=== PATIENT | female | born 1970 | race Caucasian/White ===

== ENCOUNTER 2020-08-04 10:22 | Outpatient (REF) | payer MEDICAID, SELFPAY ==
--- NOTE | ~2020-08-04 | XR_ITS ---
EXAMINATION: XR AP PELVIS AND BILATERAL HIPS XR HAND, BILATERAL XR THORACIC SPINE CLINICAL INFORMATION: Pelvic pain. Bilateral hip pain. Bilateral hand pain. Midback pain. COMPARISON: None TECHNIQUE: 3 views thoracic spine. AP pelvis and bilateral hips 5 views. 3 views each hand. FINDINGS: DORSAL SPINE: There is normal thoracic kyphosis. The vertebral heights, alignment and disc heights are normal. There is mild ventral spondylosis mid thoracic spine. There is no visible acute fracture, dislocation or subluxation seen. The paravertebral soft tissues are normal. No lytic or sclerotic process seen. AP PELVIS AND BILATERAL HIPS: There is normal symmetry of bilateral SI joints and bilateral hip joints. There is no visible acute fracture, dislocation or subluxation seen. No lytic process. RIGHT HIP: The right hip joint space is maintained. No bony erosive changes, loose bodies or joint effusion seen. The soft tissues are normal. There are several phleboliths in the pelvis. LEFT HIP: The left hip joint space is maintained normal. No fracture, dislocation or bony erosive changes. The soft tissues are normal. RIGHT HAND: There is no acute fracture, dislocation or subluxation. There is mild loss of PIP and DIP joint space with minimal periarticular spurring DIP joint 5th digit. No bony erosive changes seen. The soft tissues are normal. LEFT HAND: There is no visible acute fracture, dislocation or subluxation seen. Mild loss of PIP and DIP joint space without periarticular spurring. There is benign dense bone formation distal phalanx 2nd digit. XR/XR hips JAVIER min 3V IMPRESSION: Mild early degenerative changes suspected in PIP and DIP joints of both hands. No acute fracture or dislocation seen. Unremarkable bilateral hip and AP pelvis exam. Mild spondylosis mid dorsal spine otherwise unremarkable.
--- NOTE | ~2020-08-04 | XR_ITS ---
EXAMINATION: XR AP PELVIS AND BILATERAL HIPS XR HAND, BILATERAL XR THORACIC SPINE CLINICAL INFORMATION: Pelvic pain. Bilateral hip pain. Bilateral hand pain. Midback pain. COMPARISON: None TECHNIQUE: 3 views thoracic spine. AP pelvis and bilateral hips 5 views. 3 views each hand. FINDINGS: DORSAL SPINE: There is normal thoracic kyphosis. The vertebral heights, alignment and disc heights are normal. There is mild ventral spondylosis mid thoracic spine. There is no visible acute fracture, dislocation or subluxation seen. The paravertebral soft tissues are normal. No lytic or sclerotic process seen. AP PELVIS AND BILATERAL HIPS: There is normal symmetry of bilateral SI joints and bilateral hip joints. There is no visible acute fracture, dislocation or subluxation seen. No lytic process. RIGHT HIP: The right hip joint space is maintained. No bony erosive changes, loose bodies or joint effusion seen. The soft tissues are normal. There are several phleboliths in the pelvis. LEFT HIP: The left hip joint space is maintained normal. No fracture, dislocation or bony erosive changes. The soft tissues are normal. RIGHT HAND: There is no acute fracture, dislocation or subluxation. There is mild loss of PIP and DIP joint space with minimal periarticular spurring DIP joint 5th digit. No bony erosive changes seen. The soft tissues are normal. LEFT HAND: There is no visible acute fracture, dislocation or subluxation seen. Mild loss of PIP and DIP joint space without periarticular spurring. There is benign dense bone formation distal phalanx 2nd digit. XR/XR thoracic spine 3V IMPRESSION: Mild early degenerative changes suspected in PIP and DIP joints of both hands. No acute fracture or dislocation seen. Unremarkable bilateral hip and AP pelvis exam. Mild spondylosis mid dorsal spine otherwise unremarkable.
== END 2020-08-04 10:23 | disposition home or self-care (01) ==
LOC: HO.XRAY 10:22
PROVIDERS: PCP Internal Medicine Geriatric Medicine; Visit Provider Internal Medicine Geriatric Medicine
DX: M25.551 Pain in right hip (principal); M25.552 Pain in left hip; M54.6 Pain in thoracic spine; M79.641 Pain in right hand; M79.642 Pain in left hand
CPT/HCPCS: 72072; 73130; 73522

== ENCOUNTER 2021-05-18 07:44 | Emergency (ER) | payer MEDICAID, SELFPAY ==
[2021-05-18 07:47] VITALS: BP 111/68; PULSE 70; RESP 16; TEMP 36.6; O2SAT 100; BMI 30.8
--- NOTE | 2021-05-18 08:23 | ED.BACK ---
HPI - Back Pain/Injury General Chief Complaint: Back Pain/Injury Stated Complaint: severe back pain Time Seen by Provider: 05/18/21 08:23 Source: patient Mode of arrival: ambulatory Limitations: no limitations History of Present Illness MD elicited complaint: back pain Pertinent past history: prior back pain Onset (ago): day(s) (Monday) Timing: constant Severity: severe Similar Symptoms Previously: Yes Quality: spasming and throbbing Location: lumbar spine and thoracic spine Radiation: none Exacerbating factors: movement, walking, coughing/sneezing and lifting Relieving factors: immobilization Context: unknown Associated symptoms: denies other symptoms Treatments prior to arrival: other medications and other medications Work related injury: No Related Data Previous Rx's Medication Instructions Recorded diazepam 5 mg tablet (Valium) 5 mg PO TID PRN #10 tab 05/18/21 lidocaine 4 % topical patch 1 patch TOPICAL DAILY PRN #10 ea 05/18/21 oxycodone 5 mg tablet 5 mg PO TID PRN 3 Days #10 tab 05/18/21 Allergies Allergy/AdvReac Type Severity Reaction Status Date / Time No Known Allergies Allergy Unverified 11/07/19 17:42 [No Known Allergies*] Review of Systems Review of Systems: Constitutional : No Weight loss, No Fever, No Chills, ENT/Mouth : No Hearing loss, No Ear Pain, No Nasal Congestion, No Sinus Pain, No Hoarseness, No sore throat, No Rhinorrhea, No Swallowing Difficulty Cardiovascular : No Chest Pain, No SOB Respiratory : No Cough, No Dyspnea Gastrointestinal : No Nausea, No Vomiting, No Diarrhea, No abdominal Pain, No Hematochezia, No Melena Genitourinary : No Dysuria, No Urinary Frequency, No Hematuria, No Urinary Incontinence, Musculoskeletal : positive back pain Skin : No Skin Lesions, No rash Neuro : No Weakness, No Numbness, No Paresthesias, no loss of bowel or bladder incontinence, no saddle anesthesia PMFSH Past Medical History Attestation statement: The following information was validated with the patient. Medical History (Updated 05/18/21 @ 08:46 by Urszula Carney DO) Back pain GERD (gastroesophageal reflux disease) Gout Social History Social History (Updated 05/18/21 @ 08:41 by Urszula Carney DO) Patient Tobacco Use Status: Never used Tobacco Use of substances other than those prescribed or required for medical reasons: No Advance Directives: No Advance Directives Information Provided: No Patient : No Physical Exam Vital Signs: Vital Signs: Last Vital Signs Temp 98 F 05/18/21 07:47 Pulse 70 05/18/21 07:47 Resp 16 05/18/21 07:47 BP 111/68 05/18/21 07:47 Pulse Ox 100 05/18/21 07:47 BMI result Body Mass Index 30.8 Appearance: Alert. Oriented X3. No acute distress. Eyes: Pupils equal, round and reactive to light. ENT: Pharynx normal. Neck: Normal inspection. Neck supple. CVS: Normal heart rate and rhythm. Pulses normal. Respiratory: No respiratory distress. Breath sounds normal. Abdomen: Soft and nontender. Back: moderate lumbar paraspinal ttp Skin: Skin warm and dry. Normal skin color. Normal skin turgor. Extremities: No lower extremity edema. No calf ttp Neuro: Oriented X 3. No motor deficit. No sensory deficit. L5 5/5 bilaterally, SILT inner thighs, 2+ DTRs in patella and achiles area Course Course Course Narrative: patient feels much better, stable for DC MDM - Back Pain/Injury MDM Narrative Medical decision making narrative: 51 yo female with hx of GERD, prior back pain reports Monday AM she woke up with lower back pain that shoots up her back , denies trauma. She is not IVDA, no AC therapy, has no b/b incontinence, no saddle anesthesia, she is distal NV intact. At this time suspect spasm vs disc disease - PO medications dispo per improvement Discharge Plan Discharge Clinical Impression: Back muscle spasm Patient Disposition: Home, Self-Care Instructions: Muscle Spasm (ED), Back Pain (ED) Additional Instructions: return to ED for any worsening symptoms or concerns Prescriptions: New lidocaine 4 % adhesive patch,medicated 1 patch topical DAILY PRN (Reason: pain) Qty: 10 0RF Rx Instructions: may leave on for up to 12 hrs diazepam [Valium] 5 mg tablet 5 mg PO TID PRN (Reason: muscle spasm) Qty: 10 0RF oxycodone 5 mg tablet 5 mg PO TID PRN (Reason: pain) 3 Days Qty: 10 0RF Referrals: Name,MD Aftab [Primary Care Provider] - 3 days (if not better) Stand Alone Forms: Work/School Release
[2021-05-18] MEDS: oxyCODONE HCl Immed Release 5 MG TABLET PO (08:56)
[2021-05-18] MEDS: Ondansetron ODT 4 MG TAB.RAPDIS TRANSLINGU (08:56)
[2021-05-18] MEDS: diazePAM 5 MG TABLET PO (08:56)
[2021-05-18 09:55] VITALS: RESP 17
== END 2021-05-18 10:01 | disposition home or self-care (01) ==
PROVIDERS: Emergency Provider Emergency Medicine; PCP Internal Medicine Geriatric Medicine
DX: M54.50 Low back pain, unspecified (principal); M62.830 Muscle spasm of back; Z79.899 Other long term (current) drug therapy
CPT/HCPCS: 99283; 99284

== ENCOUNTER 2021-05-20 12:36 | Outpatient (REF) | payer MEDICAID, SELFPAY ==
--- NOTE | ~2021-05-20 | XR_ITS ---
EXAMINATION: XR THORACIC SPINE XR LUMBAR SPINE CLINICAL INFORMATION: Pain COMPARISON: 08/04/2020 TECHNIQUE: 2 views of the thoracic spine. 3 views of the lumbar spine. FINDINGS: Thoracic spine: No fracture or subluxation. Vertebral body height and alignment maintained. Mild disc space narrowing at the mid to lower thoracic spine. Small endplate osteophytes. The paravertebral soft tissues are unremarkable. The lungs are clear. Lumbar spine: No acute fracture or subluxation. Vertebral body height and alignment maintained. Mild disc space narrowing of L5-S1. Small endplate osteophytes with endplate sclerosis. Mild facet arthropathy at this level as well. The bowel gas pattern is nonobstructive. Prominent stool of the right hemicolon. Right lower quadrant surgical clips are present. XR/XR lumbar spine 2-3V IMPRESSION: Mild degenerative change of the thoracic and lumbar spine.
--- NOTE | ~2021-05-20 | XR_ITS ---
EXAMINATION: XR THORACIC SPINE XR LUMBAR SPINE CLINICAL INFORMATION: Pain COMPARISON: 08/04/2020 TECHNIQUE: 2 views of the thoracic spine. 3 views of the lumbar spine. FINDINGS: Thoracic spine: No fracture or subluxation. Vertebral body height and alignment maintained. Mild disc space narrowing at the mid to lower thoracic spine. Small endplate osteophytes. The paravertebral soft tissues are unremarkable. The lungs are clear. Lumbar spine: No acute fracture or subluxation. Vertebral body height and alignment maintained. Mild disc space narrowing of L5-S1. Small endplate osteophytes with endplate sclerosis. Mild facet arthropathy at this level as well. The bowel gas pattern is nonobstructive. Prominent stool of the right hemicolon. Right lower quadrant surgical clips are present. XR/XR thoracic spine 2V IMPRESSION: Mild degenerative change of the thoracic and lumbar spine.
== END 2021-05-20 12:37 | disposition home or self-care (01) ==
LOC: HO.XRAY 12:36
PROVIDERS: Absent Provider Internal Medicine Geriatric Medicine; PCP Internal Medicine Geriatric Medicine; Visit Provider Internal Medicine
DX: M54.51 Vertebrogenic low back pain (principal); M54.6 Pain in thoracic spine
CPT/HCPCS: 72070; 72100

== ENCOUNTER 2021-06-21 08:20 | Emergency (ER) | payer MEDICAID, SELFPAY ==
--- NOTE | ~2021-06-21 | XR_ITS ---
EXAMINATION: XR CHEST CLINICAL INFORMATION: Chest pain. COMPARISON: None TECHNIQUE: 2 views of the chest were obtained. FINDINGS: No significant abnormality is noted involving the heart, lungs, mediastinum, bony thorax or soft tissues. XR/XR chest 2V IMPRESSION: Unremarkable examination.
[2021-06-21 08:46] VITALS: BP 122/78; PULSE 70; RESP 16; TEMP 36.1; O2SAT 98; BMI 31.8
--- NOTE | 2021-06-21 09:59 | ECG_ITS ---
Test Reason : CHEST PAIN Blood Pressure : / mmHG Vent. Rate : 064 BPM Atrial Rate : 064 BPM P-R Int : 162 ms QRS Dur : 074 ms QT Int : 400 ms P-R-T Axes : 058 057 053 degrees QTc Int : 412 ms Normal sinus rhythm with sinus arrhythmia Normal ECG When compared with ECG of 30-JAN-2015 11:19, No significant change was found Referred By: Aleshia Olivia Electronically Signed By:RUT MIX MD
--- NOTE | 2021-06-21 10:02 | ED_ITS ---
HPI - Back Pain/Injury General Chief Complaint: Back Pain/Injury Stated Complaint: can't feel arm, back and rib pain Time Seen by Provider: 06/21/21 09:44 Source: patient Mode of arrival: ambulatory History of Present Illness HPI Narrative: 51-year-old female with a past medical history back pain, GERD, gout, fibromyalgia, presenting to the ED complaining of sudden onset right scapular pain radiating down RUE around 07:30AM. Admits to associated chest discomfort, SOB, and numbness/tingling to right arm. Reports pain causing decreased range of motion to RUE. Admits to similar pain in the past. Denies fever, chills, headache, abdominal pain, nausea/vomiting MD elicited complaint: back pain Onset (ago): day(s) Timing: constant Severity: severe Related Data Previous Rx's Medication Instructions Recorded diazepam 5 mg tablet (Valium) 5 mg PO TID PRN #10 tab 05/18/21 lidocaine 4 % topical patch 1 patch TOPICAL DAILY PRN #10 ea 05/18/21 oxycodone 5 mg tablet 5 mg PO TID PRN 3 Days #10 tab 05/18/21 acetaminophen 500 mg capsule 500 mg PO Q6H PRN #14 cap 06/21/21 (Tylophen) cyclobenzaprine 5 mg tablet 5 mg PO Q8H PRN 5 Days #14 tab 06/21/21 lidocaine 5 % topical patch 1 patch TOPICAL DAILY PRN #30 ea 06/21/21 (Lidoderm) MDD remove after 12 hours naproxen 500 mg tablet 500 mg PO BID PRN 10 Days #20 tab 06/21/21 Allergies Allergy/AdvReac Type Severity Reaction Status Date / Time No Known Allergies Allergy Unverified 11/07/19 17:42 [No Known Allergies*] Review of Systems Review of Systems: Constitutional: No Fever, No Chills, No Fatigue, No Malaise ENT/Mouth: No Ear Pain, No Nasal Congestion, No sore throat, No Rhinorrhea, No Swallowing Difficulty Eyes: No Eye Pain, No Swelling, No Redness, No Discharge Cardiovascular: +Chest Pain, + SOB, No Edema, No Palpitations Respiratory: No Cough, No Sputum, No Dyspnea Gastrointestinal: No Nausea, No Vomiting, No Diarrhea, No Constipation, No Abdominal pain Genitourinary:No Dysuria, No Urinary Frequency, No Hematuria, No Urinary Incontinence, No Flank Pain, No Urinary Flow Changes Musculoskeletal: +back pain, No Myalgias, No Joint Swelling Skin: No Skin Lesions, No rash Neuro: No Weakness, + Numbness, + Paresthesias, No Loss of Consciousness, No Dizziness, No Headache Yes all other systems are reviewed and are negative [facility] Past Medical History Attestation statement: The following information was validated with the patient. Medical History Back pain GERD (gastroesophageal reflux disease) Gout Social History Social History Patient Tobacco Use Status: Never used Tobacco Advance Directives: No Advance Directives Information Provided: No Physical Exam Vital Signs: Vital Signs: Last Vital Signs Temp 96.9 F 06/21/21 08:46 Pulse 70 06/21/21 08:46 Resp 16 06/21/21 08:46 BP 122/78 06/21/21 08:46 Pulse Ox 98 06/21/21 08:46 BMI result Body Mass Index 31.8 Const: General: cooperative, healthy appearing, no acute distress, alert and awake Orientation/consciousness: patient oriented x3 Limitations: no limitations HEENT: Head: Yes normal to inspection and Yes atraumatic Ears: hearing grossly normal bilaterally General nose exam: Normal external nose present Face and sinus: Yes normal facial exam Eyes: General: appearance normal, both eyes and all related structures EOM: EOMs intact bilaterally Neck: Other: No midline cervical spinous tenderness/step-off or deformity Neck: Yes normal visual inspection and Yes no meningeal signs Resp: Effort & Inspection: normal respiratory effort and no respiratory distress Cardio: Rate: regular rate Heart sounds: S1 normal heart sound present and S2 normal heart sound present Peripheral pulses: radial pulses present GI: Inspection: Yes normal to inspection Palpation (GI): Soft to palpation, nontender, no guarding and not rigid : General: Yes no CVA tenderness Back/Spine/Pelvis: Other: No midline thoracic/lumbar spine tenderness. Right-sided thoracic paraspinal tenderness to palpation and right subscapular tenderness, reproducing subjective complaint. No erythema/ecchymosis. No crepitus Back: no CVA tenderness Skin: Rashes: no rashes Wounds: no wounds Neuro: General: patient oriented x3, tone normal and no meningeal signs Gait exam (Neuro): Normal gait present Extrem: Other: +R shoulder nontender, decreased ROM secondary to pain. NV intact distally General: Yes normal to inspection, Yes no pedal edema and Yes no calf tenderness Course Course Course Narrative: -reports symptomatic improvement after medications given in the ED XR chest 2V IMPRESSION: Unremarkable examination --1513--labs unremarkable. Troponin x2 negative MDM - Back Pain/Injury MDM Narrative Medical decision making narrative: 51-year-old female with a past medical history back pain, GERD, gout, fibromyalgia, presenting to the ED complaining of sudden onset right scapular pain radiating down RUE around 07:30AM. Admits to associated chest discomfort, SOB, and numbness/tingling to right arm. On exam vital signs stable, NAD/nontoxic-appearing, physical exam as above, no red flag symptoms, no midline spinous tenderness throughout. Decreased range of motion to right arm secondary to pain. Concern for MSK pain/strain/muscle spasming vs ACS. Symptoms atypical for PE/pneumonia. Low concern for cervical fracture/cord compression or cervical dissection Plan: EKG, labs, CXR, pain management, re-evaluated Medical Records Attestation: I reviewed the patient's medical records. Lab Data Attestation: I reviewed the patient's lab results. Result diagrams: 06/21/21 11:05 06/21/21 11:05 Labs: Lab Results 06/21/21 06/21/21 06/21/21 Range/Units 11:05 11:05 11:05 WBC 4.9 (4.8-10.8) X10*3/uL RBC 4.85 (4.20-5.50) X10*6/uL Hgb 13.0 (12.0-16.0) g/dl Hct 40.7 (37.0-47.0) % MCV 83.9 (80.0-98.0) fL MCH 26.8 L (27.0-33.0) pg MCHC 31.9 (31.0-35.0) g/dl RDW 14.3 (11.0-16.0) % Plt Count 195 (160-400) X10*3/uL MPV 11.1 (9.4-12.3) fL Immature Gran % (Auto) 0.2 (0.0-0.4) % Neut % (Auto) 59.5 (45-73) % Lymph % (Auto) 31.8 (20-40) % Mathews % (Auto) 6.9 (2-11) % Eos % (Auto) 0.8 (0-4) % Baso % (Auto) 0.8 (0-2) % Lymph # (Auto) 1.6 (1.2-4.9) X10*3/uL Mathews # (Auto) 0.3 (0.1-1.2) X10*3/uL Eos # (Auto) 0.0 (0.0-0.4) X10*3/uL Baso # (Auto) 0.0 (0.0-0.2) X10*3/uL Abs Immat Gran (auto) 0.01 (0.00-0.03) X10*3/uL Absolute Neuts (auto) 2.9 (2.0-8.3) x10*3/uL Absolute Nucleated RBC 0.000 (0.0-0.012) X10*3/uL Nucleated RBC % (auto) 0.0 (0.0-0.2) /100WBC Sodium 140 (135-145) mmol/L Potassium 4.7 (3.3-5.1) mmol/L Chloride 104 (96-108) mmol/L Carbon Dioxide 30 H (22-29) mmol/L Anion Gap 11 L (12-20) BUN 12 (9-16) mg/dL Creatinine 0.80 (0.5-1.4) mg/dL Estim Creat Clear Calc 83.2 Estimated GFR > 60 Random Glucose 109 (60-115) mg/dL Calcium 10.1 (8.4-10.2) mg/dL Troponin I High Sens < 3.5 (<3.5-17.0) ng/L B-Natriuretic Peptide (<100) pg/mL 06/21/21 06/21/21 Range/Units 11:05 14:16 WBC (4.8-10.8) X10*3/uL RBC (4.20-5.50) X10*6/uL Hgb (12.0-16.0) g/dl Hct (37.0-47.0) % MCV (80.0-98.0) fL MCH (27.0-33.0) pg MCHC (31.0-35.0) g/dl RDW (11.0-16.0) % Plt Count (160-400) X10*3/uL MPV (9.4-12.3) fL Immature Gran % (Auto) (0.0-0.4) % Neut % (Auto) (45-73) % Lymph % (Auto) (20-40) % Mathews % (Auto) (2-11) % Eos % (Auto) (0-4) % Baso % (Auto) (0-2) % Lymph # (Auto) (1.2-4.9) X10*3/uL Mathews # (Auto) (0.1-1.2) X10*3/uL Eos # (Auto) (0.0-0.4) X10*3/uL Baso # (Auto) (0.0-0.2) X10*3/uL Abs Immat Gran (auto) (0.00-0.03) X10*3/uL Absolute Neuts (auto) (2.0-8.3) x10*3/uL Absolute Nucleated RBC (0.0-0.012) X10*3/uL Nucleated RBC % (auto) (0.0-0.2) /100WBC Sodium (135-145) mmol/L Potassium (3.3-5.1) mmol/L Chloride (96-108) mmol/L Carbon Dioxide (22-29) mmol/L Anion Gap (12-20) BUN (9-16) mg/dL Creatinine (0.5-1.4) mg/dL Estim Creat Clear Calc Estimated GFR Random Glucose (60-115) mg/dL Calcium (8.4-10.2) mg/dL Troponin I High Sens < 3.5 (<3.5-17.0) ng/L B-Natriuretic Peptide 25 (<100) pg/mL Discharge Plan Discharge Clinical Impression: Thoracic back pain Patient Disposition: Home, Self-Care Instructions: Back Pain (ED) Additional Instructions: Your blood work and chest x-ray were reassuring today in the emergency department Please follow-up with her doctor/pain management Your pain is likely musculoskeletal Flexeril is a muscle relaxer, take at night as it makes you drowsy, do not drive, drink alcohol, or operate machinery while taking it Naproxen as an anti-inflammatory / pain medication, take with food Lidoderm patches are numbing patches, apply to painful area In addition take Tylenol at home If symptoms persist or worsen, pain becomes unbearable, you developed urinary retention or incontinence, or weakness return to the ED Alexander an?lisis de janice y radiograf?a de t?rax fueron tranquilizadores hoy en el departamento de emergencias. Por favor, robert un seguimiento con alexander m?dico/control del dolor. Es probable que alexander dolor sea musculoesquel?tyrone Flexeril es un relajante muscular, t?ignacio por la noche ya que te adormece, no conduzcas, bebas alcohol ni operes maquinaria mientras lo edil. Naproxeno laly medicamento antiinflamatorio/analg?sico, t?patricia con alimentos Los parches de Lidoderm son parches anest?sicos, se aplican en el ?rafat dolorida Adem?s paul Tylenol en casa Si los s?ntomas persisten o empeoran, el dolor se vuelve insoportable, desarroll? retenci?n urinaria o incontinencia, o debilidad, regrese al servicio de urgencias. Prescriptions: New lidocaine [Lidoderm] 5 % adhesive patch,medicated 1 patch topical DAILY MDD remove after 12 hours PRN (Reason: pain) Qty: 30 0RF Rx Instructions: leave on most painful area for up to 12 hrs naproxen 500 mg tablet 500 mg PO BID PRN (Reason: pain) 10 Days Qty: 20 0RF cyclobenzaprine 5 mg tablet 5 mg PO Q8H PRN (Reason: pain (scale score 7-10)) 5 Days Qty: 14 0RF acetaminophen [Tylophen] 500 mg capsule 500 mg PO Q6H PRN (Reason: fever or pain) Qty: 14 0RF No Action lidocaine 4 % adhesive patch,medicated 1 patch topical DAILY PRN (Reason: pain) Qty: 10 0RF Rx Instructions: may leave on for up to 12 hrs diazepam [Valium] 5 mg tablet 5 mg PO TID PRN (Reason: muscle spasm) Qty: 10 0RF oxycodone 5 mg tablet 5 mg PO TID PRN (Reason: pain) 3 Days Qty: 10 0RF Referrals: Name,MD Aftab [Primary Care Provider] - 5 days Print Language: Tuvaluan
[2021-06-21] MEDS: Cyclobenzaprine HCl 10 MG TABLET PO (10:51)
[2021-06-21] MEDS: Ketorolac Tromethamine 30 MG/ML VIAL IM (10:52)
[2021-06-21] MEDS: Lidocaine 4 % Patch ADH..PATCH 1 PATCH TRANSDERMA (10:52)
[2021-06-21 11:10] LABS: MANUAL DIFF FLAG NO
[2021-06-21 11:12] LABS: Basophils Percent Auto 0.8 % (0-2); Eosinophils Percent Auto 0.8 % (0-4); Hematocrit 40.7 % (37.0-47.0); Imm Gran Abs Auto 0.01 X10*3/uL (0.00-0.03); Imm Gran Pct Auto 0.2 % (0.0-0.4); Lymphocytes Absolute Auto 1.6 X10*3/uL (1.2-4.9); Lymphocytes Percent Auto 31.8 % (20-40); Mean Corpuscular HGB Conc 31.9 g/dl (31.0-35.0); Mean Corpuscular Hemoglobin 26.8 pg (27.0-33.0); Mean Corpuscular Volume 83.9 fL (80.0-98.0); Mean Platelet Volume 11.1 fL (9.4-12.3); Monocytes Absolute Auto 0.3 X10*3/uL (0.1-1.2); Monocytes Percent Auto 6.9 % (2-11); Neutrophils Absolute Auto 2.9 x10*3/uL (2.0-8.3); Neutrophils Percent Auto 59.5 % (45-73); Platelet Count 195 X10*3/uL (160-400); Red Blood Count 4.85 X10*6/uL (4.20-5.50); Red Cell Distribution Width 14.3 % (11.0-16.0); White Blood Count 4.9 X10*3/uL (4.8-10.8)
[2021-06-21 11:31] LABS: Anion Gap 11 (12-20); B Type Natriuretic Peptide 25 pg/mL (<100); Blood Urea Nitrogen 12 mg/dL (9-16); Calcium 10.1 mg/dL (8.4-10.2); Carbon Dioxide 30 mmol/L (22-29); Chloride 104 mmol/L (96-108); Creatinine Clr Calc Pharmacy 83.2; Estimated Glomerular Filt Rate > 60; Glucose Random 109 mg/dL (60-115); Potassium 4.7 mmol/L (3.3-5.1); Sodium 140 mmol/L (135-145); Troponin-I High Sensitivity < 3.5 ng/L (<3.5-17.0)
[2021-06-21 14:49] LABS: Troponin-I High Sensitivity < 3.5 ng/L (<3.5-17.0)
[2021-06-21 15:56] VITALS: BP 118/72; PULSE 65; RESP 16; TEMP 36.7; O2SAT 100
== END 2021-06-21 16:08 | disposition home or self-care (01) ==
PROVIDERS: Physician Assistant; Emergency Provider Emergency Medicine; PCP Internal Medicine Geriatric Medicine
DX: R07.89 Other chest pain (principal); R06.02 Shortness of breath; M54.50 Low back pain, unspecified; M54.6 Pain in thoracic spine; Z79.899 Other long term (current) drug therapy
CPT/HCPCS: 36415; 71046; 80048; 83880; 84484; 85025; 93005; 96372; 99284; J1885

== ENCOUNTER 2021-11-17 08:40 | Emergency (ER) | payer MEDICAID, SELFPAY ==
--- NOTE | ~2021-11-17 | CT_ITS ---
EXAMINATION: CT ABDOMEN AND PELVIS WITH CONTRAST CLINICAL INFORMATION: Lump/growth in right lower quadrant with history of appendectomy COMPARISON: None TECHNIQUE: Multidetector volumetric images were obtained from the superior aspect of the liver through the pubic symphysis following administration 85 mL of Omnipaque 350 intravenous contrast. Sagittal and coronal reformatted images were obtained on the technologist's workstation. Oral contrast: No This CT examination was performed using dose optimization techniques as appropriate, variously including the following: *Automated exposure control *Adjustment of mA and/or kV according to patient size (this includes techniques or standardized protocols for targeted exams where dose is matched to indication/reason for exam; i.e. extremities or head) *Use of iterative reconstruction technique DLP: 510 mGy-cm FINDINGS: LUNG BASES: The visualized lung bases are unremarkable. LIVER, GALLBLADDER, AND BILIARY TREE: The liver is normal in size, shape, and attenuation. Tiny hypodensities seen scattered throughout the liver. The 2 largest measuring 1 cm and 1.8 cm measure water density (3:13 and 34). These are all consistent with small cysts. No worrisome solid focal hepatic lesion or biliary ductal dilatation is present. The gallbladder is unremarkable with no evidence of radiopaque gallstones, gallbladder wall thickening, or obvious pericholecystic inflammatory changes. PANCREAS: Unremarkable. SPLEEN: Unremarkable. ADRENAL GLANDS: Unremarkable. KIDNEYS AND URETERS: The kidneys are normal in size, shape, and attenuation. No hydronephrosis, hydroureter, or calculi seen. No perinephric stranding. BLADDER: Unremarkable. GASTROINTESTINAL TRACT: The small and large bowel are unremarkable. The appendix is no longer present. ABDOMINAL WALL: There is mild diastases of the rectus muscles at the umbilicus with some mild forward bulging but no gross hernia. The right lower quadrant, there is a small area of herniation of fat into minimal spigelian hernia, possibly related to the patient's prior surgery. The herniated fat remains within the abdominal wall. No inguinal hernias are seen. LYMPH NODES: No retroperitoneal lymphadenopathy. VASCULAR: The aorta and iliofemoral vessels appear normal. There is gross risk reflux in both ovarian veins with large left pelvic varices present. The left ovarian vein is dilated at 0.9 cm. PELVIC VISCERA: An anteverted uterus is present with a fundal fibroid OSSEOUS STRUCTURES: Mild degenerative changes seen at L5-S1. Destructive lesions CT/CT abdomen pelvis w IV con IMPRESSION: Small hernia into abdominal wall in the right lower quadrant probably accounting for lump . Incidentally noted hepatic cysts and dilated refluxing ovarian veins with pelvic varices. This latter finding can be associated with chronic pelvic pain, especially if worsened with prolonged upright or sitting position and relieved with the supine position. If the patient has this symptom complex, consider IR consult. Fleischner guidelines were followed.
[2021-11-17 09:40] VITALS: BP 103/58; PULSE 68; RESP 16; TEMP 36.6; O2SAT 97; BMI 28.3
[2021-11-17 09:53] LABS: MANUAL DIFF FLAG NO
[2021-11-17 10:00] LABS: Basophils Percent Auto 0.9 % (0-2); Eosinophils Percent Auto 0.9 % (0-4); Hemoglobin 13.5 g/dl (12.0-16.0); Imm Gran Abs Auto 0.01 X10*3/uL (0.00-0.03); Imm Gran Pct Auto 0.2 % (0.0-0.4); Lymphocytes Absolute Auto 1.4 X10*3/uL (1.2-4.9); Lymphocytes Percent Auto 31.5 % (20-40); Mean Corpuscular HGB Conc 32.9 g/dl (31.0-35.0); Mean Corpuscular Hemoglobin 28.1 pg (27.0-33.0); Mean Corpuscular Volume 85.4 fL (80.0-98.0); Mean Platelet Volume 10.9 fL (9.4-12.3); Monocytes Absolute Auto 0.4 X10*3/uL (0.1-1.2); Monocytes Percent Auto 8.4 % (2-11); Neutrophils Absolute Auto 2.5 x10*3/uL (2.0-8.3); Neutrophils Percent Auto 58.1 % (45-73); Platelet Count 196 X10*3/uL (160-400); Red Cell Distribution Width 13.7 % (11.0-16.0); White Blood Count 4.4 X10*3/uL (4.8-10.8)
[2021-11-17 10:16] LABS: Anion Gap 15 (12-20); Blood Urea Nitrogen 16 mg/dL (9-16); Calcium 9.8 mg/dL (8.4-10.2); Carbon Dioxide 26 mmol/L (22-29); Chloride 106 mmol/L (96-108); Creatinine Clr Calc Pharmacy 76.2; Estimated Glomerular Filt Rate > 60; Glucose Random 99 mg/dL (60-115); Potassium 4.2 mmol/L (3.3-5.1); Sodium 143 mmol/L (135-145)
[2021-11-17 20:00] VITALS: BP 134/76; PULSE 76; RESP 18; TEMP 36.7; O2SAT 96
--- NOTE | 2021-11-17 20:00 | ED.GENADULT ---
HPI - General Adult General Chief complaint: Abdominal Pain Stated complaint: bump on R side of stomach, hard bump Time Seen by Provider: 11/17/21 17:05 Source: patient Mode of arrival: ambulatory Limitations: no limitations History of Present Illness HPI narrative: The patient is a 51 year old female with a past medical history of back pain, GERD, gout, fibromyalgia who presents to the ED for a mass in her right lower abdomen. She reports noticing the mass about 4 months ago. She has a past surgical history significant for an appendectomy. She reports a 35lbs weight loss since July, though endorses a recent change to a no carb diet. The patient states that she feels like the mass is getting bigger, but is unsure if it is because she is noticing it more due to the weight loss. She denies abdominal pain, fever, chills, night sweats, nausea, vomiting, constipation or diarrhea. MD complaint: abd pain and Mass Onset (ago): month(s) (4) Location: abdomen (RLQ, ingunal area ) Radiation: abdomen Relieving factors: none Exacerbating factors: none Associated symptoms: denies other symptoms Treatments prior to arrival: none Related Data Previous Rx's Medication Instructions Recorded diazepam 5 mg tablet (Valium) 5 mg PO TID PRN muscle spasm #10 05/18/21 tabs lidocaine 4 % topical patch 1 patch topical DAILY PRN pain #10 05/18/21 ea oxycodone 5 mg tablet 5 mg PO TID PRN pain 3 days #10 05/18/21 tabs acetaminophen 500 mg capsule 500 mg PO Q6H PRN fever or pain 06/21/21 (Tylophen) #14 caps cyclobenzaprine 5 mg tablet 5 mg PO Q8H PRN pain (scale score 06/21/21 7-10) 5 days #14 tabs lidocaine 5 % topical patch 1 patch topical DAILY PRN pain #30 06/21/21 (Lidoderm) ea naproxen 500 mg tablet 500 mg PO BID PRN pain 10 days #20 06/21/21 tabs Allergies Allergy/AdvReac Type Severity Reaction Status Date / Time No Known Allergies Allergy Unverified 11/07/19 17:42 [No Known Allergies*] Review of Systems Review of Systems: Constitutional : + Weight loss, No Fever, No Chills, No Night Sweats, No Fatigue, No Malaise ENT/Mouth : No Hearing loss, No Ear Pain, No Nasal Congestion, No Sinus Pain, No Hoarseness, No sore throat, No Rhinorrhea, No Swallowing Difficulty Eyes: No Eye Pain, No Swelling, No Redness, No Foreign Body, No Discharge, No Vision Changes Cardiovascular : No Chest Pain, No SOB, No Dyspnea on Exertion, No Orthopnea, No Edema, No Palpitations Respiratory : No Cough, No Sputum, No Wheezing, No Smoke Exposure, No Dyspnea Gastrointestinal : + mass noted in the RLQ, No Nausea, No Vomiting, No Diarrhea, No Constipation, No abdominal Pain, No Hematochezia, No Melena Genitourinary : no irregular bleeding, No Dysuria, No Urinary Frequency, No Hematuria, No Urinary Incontinence, No Urgency, No Flank Pain, No Urinary Flow Changes, No Hesitancy Musculoskeletal : No joint pain, No Myalgias, No Joint Swelling Skin : No Skin Lesions, No rash Neuro : No Weakness, No Numbness, No Paresthesias, No Loss of Consciousness, No Dizziness, No Headache Psych : No Anxiety/Panic, No Depression, No SI/HI/AH/VH, No Social Issues, Heme/Lymph: No Bruising, No Bleeding,No Lymphadenopathy Endocrine : No Polyuria, No Polydipsia, No Temperature Intolerance Yes all other systems are reviewed and are negative [facility] Past Medical History Attestation statement: The following information was validated with the patient. Source: old records reviewed and nursing notes reviewed Medical History Back pain GERD (gastroesophageal reflux disease) Gout Social History Social History Patient Tobacco Use Status: Never used Tobacco Advance Directives: No Advance Directives Information Provided: No Physical Exam ED Vital Signs: Vital Signs - 24 hr 11/17/21 09:40 11/17/21 20:00 11/17/21 21:45 Temperature 98 F 98.0 F 97.5 F Pulse Rate 68 76 69 Respiratory Rate 16 18 18 Blood Pressure 103/58 L 134/76 132/73 Pulse Oximetry 97 96 97 Oxygen Delivery Method Room Air Room Air Room Air BMI result Body Mass Index 28.3 vital signs have been reviewed as normal and appeared to be correct. Blood pressure normal. Heart rate normal. Respiration rate normal. Temperature normal. Oxygen saturation normal. Appearance: Alert. Oriented X3. No acute distress. Head: Normal external exam. Normocephalic. Atraumatic. Eyes: PERRLA. EOMI. Conjunctiva and sclera normal. Eyelids normal. ENT: Moist mucous membranes. Normal voice. No trismus noted. No drooling noted. No muffled voice noted. Neck: Normal inspection. Neck supple. FROM. No adenopathy. No meningeal signs. CVS: Normal heart rate and rhythm. Heart sound normal. Pulses normal throughout. No murmurs/rales/gallops. Respiratory: No respiratory distress. Painless inspiration. Breath sounds normal. No wheezes/rales/rhonchi noted. No accessory muscle usage noted or decreased air movement noted. Abdomen: + mass noted in the RLQ/ inguinal crease while standing, no distinct boarders, unable to appreciate mass while patient is laying down. No pain with palaption. Soft and nontender. Bowel sounds normal in all 4 quadrants. No distention noted. No organomegaly noted. No visible injury noted. Back: Full range of motion noted. Nontender. No signs of trauma. Patient neuro intact bilaterally and distally on all 4 extremities. No rashes/lesion/induration/fluctuance or signs of infection noted. Skin: Skin warm and dry. Normal skin color. Normal skin turgor. No rashes/lesions/lacerations noted. Extremities:Extremities exhibit normal range of motion and nontender. Neuro: Oriented X 3. No motor deficit. No sensory deficit. Normal steady gait. No focal neuro deficits noted. CN's II-XII intact bilaterally? Vascular: + radial pulses b/l. Normal cap refill. No cyanosis noted to upper extremity nails. Course Course Course Narrative: 8pm -The patient is a 51 year old female who presents to the ED for a mass in her right lower abdomen. She reports noticing the mass about 4 months ago. She has a past surgical history significant for an appendectomy. She reports a 35lbs weight loss since July, though endorses a recent change to a no carb diet. The patient states that she feels like the mass is getting bigger, but is unsure if it is because she is noticing it more due to the weight loss. She denies abdominal pain, fever, chills, night sweats, nausea, vomiting, constipation or diarrhea. Plan: CT with contrast, labs ordered and significant for WBC 4.4 (similar to previous labs). Reevaluation(s) Reevaluation #1: - labs reviewed patient with blood cell count 4000. Otherwise all other labs are within normal limits. Patient negative for by blood. UA revealed 15 ketones otherwise no evidence of UTI. CT scan abdomen pelvis revealed small hernia. Incidental liver cyst. Along with ovarian veins that are dilated with pelvic varices patient reports she does not have chronic pain. I printed out the results explained to patient she should follow-up with her PCP for further evaluation treatment and to return if any new or worsening symptoms follow up with General surgery for further evaluation treatment of her hernia. Patient understands agrees with this plan. Time: 22:57 Medical Decision Making Medical Records Medical records reviewed: Yes I reviewed the patient's medical records. Lab Data Lab results reviewed: Yes I reviewed the patient's lab results. Result diagrams: 11/17/21 09:46 11/17/21 09:46 Labs: Lab Results 11/17/21 11/17/21 11/17/21 Range/Units 09:46 09:46 21:24 WBC 4.4 L (4.8-10.8) X10*3/uL RBC 4.80 (4.20-5.50) X10*6/uL Hgb 13.5 (12.0-16.0) g/dl Hct 41.0 (37.0-47.0) % MCV 85.4 (80.0-98.0) fL MCH 28.1 (27.0-33.0) pg MCHC 32.9 (31.0-35.0) g/dl RDW 13.7 (11.0-16.0) % Plt Count 196 (160-400) X10*3/uL MPV 10.9 (9.4-12.3) fL Immature Gran % (Auto) 0.2 (0.0-0.4) % Neut % (Auto) 58.1 (45-73) % Lymph % (Auto) 31.5 (20-40) % Wake % (Auto) 8.4 (2-11) % Eos % (Auto) 0.9 (0-4) % Baso % (Auto) 0.9 (0-2) % Lymph # (Auto) 1.4 (1.2-4.9) X10*3/uL Wake # (Auto) 0.4 (0.1-1.2) X10*3/uL Eos # (Auto) 0.0 (0.0-0.4) X10*3/uL Baso # (Auto) 0.0 (0.0-0.2) X10*3/uL Abs Immat Gran (auto) 0.01 (0.00-0.03) X10*3/uL Absolute Neuts (auto) 2.5 (2.0-8.3) x10*3/uL Absolute Nucleated RBC 0.000 (0.0-0.012) X10*3/uL Nucleated RBC % (auto) 0.0 (0.0-0.2) /100WBC Sodium 143 (135-145) mmol/L Potassium 4.2 (3.3-5.1) mmol/L Chloride 106 (96-108) mmol/L Carbon Dioxide 26 (22-29) mmol/L Anion Gap 15 (12-20) BUN 16 (9-16) mg/dL Creatinine 0.73 (0.5-1.4) mg/dL Estim Creat Clear Calc 76.2 Estimated GFR > 60 Random Glucose 99 (60-115) mg/dL Calcium 9.8 (8.4-10.2) mg/dL Magnesium 2.1 (1.6-2.6) mg/dL Total Bilirubin 0.4 (0.0-1.0) mg/dL Direct Bilirubin 0.2 (0.0-0.5) mg/dL AST 21 (5-31) U/L ALT 17 (0-31) U/L Alkaline Phosphatase 72 (39-117) U/L Total Protein 7.1 (6.5-8.0) g/dL Albumin 4.4 (3.5-5.0) g/dL Lipase 61 (8-78) U/L Beta HCG, Quant < 2 mIU/mL Urine Color Yellow Urine Appearance Clear Urine pH 5.5 (5.0-9.0) Ur Specific [place] 1.015 (1.005-1.025) Urine Protein Negative (Neg-Trace) mg/dL Urine Glucose (UA) Negative (Negative) mg/dL Urine Ketones 15 (Negative) mg/dL Urine Blood Negative (Negative) Urine Nitrite Negative (Negative) Ur Leukocyte Esterase Negative (Negative) Imaging Data CT scan abdomen pelvis with IV contrast: Attestation: I personally reviewed and interpreted this imaging study as follows: Radiologist's impression: FINDINGS: LUNG BASES: The visualized lung bases are unremarkable.? LIVER, GALLBLADDER, AND BILIARY TREE: The liver is normal in size, shape, and attenuation. Tiny hypodensities seen scattered throughout the liver. The 2 largest measuring 1 cm and 1.8 cm measure water density (3:13 and 34). These are all consistent with small cysts. No worrisome solid focal hepatic lesion or biliary ductal dilatation is present. The gallbladder is unremarkable with no evidence of radiopaque gallstones, gallbladder wall thickening, or obvious pericholecystic inflammatory changes.? PANCREAS: Unremarkable.? SPLEEN: Unremarkable.? ADRENAL GLANDS: Unremarkable.? KIDNEYS AND URETERS: The kidneys are normal in size, shape, and attenuation. No hydronephrosis, hydroureter, or calculi seen. No perinephric stranding. ? BLADDER: Unremarkable.? GASTROINTESTINAL TRACT: The small and large bowel are unremarkable. The appendix is no longer present.? ABDOMINAL WALL: There is mild diastases of the rectus muscles at the umbilicus with some mild forward bulging but no gross hernia. The right lower quadrant, there is a small area of herniation of fat into minimal spigelian hernia, possibly related to the patient's prior surgery. The herniated fat remains within the abdominal wall. No inguinal hernias are seen.? LYMPH NODES: No retroperitoneal lymphadenopathy. VASCULAR: The aorta and iliofemoral vessels appear normal. There is gross risk reflux in both ovarian veins with large left pelvic varices present. The left ovarian vein is dilated at 0.9 cm. PELVIC VISCERA: An anteverted uterus is present with a fundal fibroid? OSSEOUS STRUCTURES: Mild degenerative changes seen at L5-S1. Destructive lesions? CT/CT abdomen pelvis w IV con IMPRESSION: Small hernia into abdominal wall in the right lower quadrant probably accounting for lump . Incidentally noted hepatic cysts and dilated refluxing ovarian veins with pelvic varices. This latter finding can be associated with chronic pelvic pain, especially if worsened with prolonged upright or sitting position and relieved with the supine position. If the patient has this symptom complex, consider IR consult. ? Fleischner guidelines were followed. Discharge Plan Discharge Clinical Impression: Spigelian hernia, Benign liver cyst Patient Disposition: Home, Self-Care Instructions: Ventral Hernia (ED) Prescriptions: No Action lidocaine 4 % adhesive patch,medicated 1 patch topical DAILY PRN (Reason: pain) Qty: 10 0RF Rx Instructions: may leave on for up to 12 hrs diazepam [Valium] 5 mg tablet 5 mg PO TID PRN (Reason: muscle spasm) Qty: 10 0RF oxycodone 5 mg tablet 5 mg PO TID PRN (Reason: pain) 3 Days Qty: 10 0RF lidocaine [Lidoderm] 5 % adhesive patch,medicated 1 patch topical DAILY MDD remove after 12 hours PRN (Reason: pain) Qty: 30 0RF Rx Instructions: leave on most painful area for up to 12 hrs naproxen 500 mg tablet 500 mg PO BID PRN (Reason: pain) 10 Days Qty: 20 0RF cyclobenzaprine 5 mg tablet 5 mg PO Q8H PRN (Reason: pain (scale score 7-10)) 5 Days Qty: 14 0RF acetaminophen [Tylophen] 500 mg capsule 500 mg PO Q6H PRN (Reason: fever or pain) Qty: 14 0RF Referrals: Kalyan Stark MD [Physician] - (call to make a follow-up appointment within the next few weeks. llame para hacer xavier denisse de seguimiento dentro de las pr?ximas semanas) Name,MD Aftab [Primary Care Provider] - 2 days Interventions: ED Discharge Assessment Last Done: 11/17/21 22:49 Discharge Date/Time: 11/17/21 22:49 Print Language: Lao
[2021-11-17 20:21] LABS: Alanine Aminotransferase 17 U/L (0-31); Albumin Level 4.4 g/dL (3.5-5.0); Alkaline Phosphatase 72 U/L (39-117); Aspartate Amino Transferase 21 U/L (5-31); Bilirubin Direct 0.2 mg/dL (0.0-0.5); Bilirubin Total 0.4 mg/dL (0.0-1.0); Lipase 61 U/L (8-78); Magnesium 2.1 mg/dL (1.6-2.6); Total Protein 7.1 g/dL (6.5-8.0)
[2021-11-17 20:27] LABS: HCG Quantitative < 2 mIU/mL
[2021-11-17 21:36] LABS: Appearance Urine Clear; Color Urine Yellow; Glucose Urine UA Negative (Negative); Leukocyte Esterase Urine Negative (Negative); Nitrite Urine Negative (Negative); PH 5.5 (5.0-9.0); Specific Gravity - Urine 1.015 (1.005-1.025); Urine Blood Negative (Negative); Urine Ketones 15 mg/dL (Negative); Urine Protein Negative (Neg-Trace)
[2021-11-17 21:45] VITALS: BP 132/73; PULSE 69; RESP 18; TEMP 36.4; O2SAT 97
[2021-11-17] MEDS: iohexoL 350 MG/ML 100 ML INFUS..BTL 85 ML IV (22:05)
== END 2021-11-17 22:49 | disposition home or self-care (01) ==
PROVIDERS: Physician Assistant Medical; Emergency Provider Internal Medicine; PCP Internal Medicine Geriatric Medicine
DX: K43.9 Ventral hernia without obstruction or gangrene (principal); K76.89 Other specified diseases of liver
CPT/HCPCS: 36415; 74177; 80048; 80076; 81003; 83690; 83735; 84702; 85025; 99283; 99284; Q9967

== ENCOUNTER → 2021-12-30 11:12 | Outpatient (BNVA) | payer MEDICAID, SELFPAY | PROVIDERS: PCP Internal Medicine Geriatric Medicine; Visit Provider Surgery | DX: K43.2 Incisional hernia without obstruction or gangrene (principal) | CPT/HCPCS: 99202 ==

== ENCOUNTER 2022-02-25 07:21 | Day surgery (SDC) | payer MEDICAID, SELFPAY ==
[2022-02-22 11:03] VITALS: BMI 26.9
--- NOTE | 2022-02-24 09:10 | HO.ANESPROP2 ---
Documented by User: Jennifer March NP 02/24/22 09:11 HPI - Anesthesia Eval Consult details Narrative: 51yo F for Hernia Repair Incisional with mesh PMFSH Active Problems Active Problems: All Active Problems (Updated 12/30/21 @ 11:57 by Kalyan Stark MD) Incisional hernia (Acute) Fibromyalgia (Acute) Past Medical History Medical History (Updated 12/30/21 @ 11:57 by Kalyan Stark MD) Back pain Fibromyalgia GERD (gastroesophageal reflux disease) Gout Incisional hernia Surgical History Surgical History History of 3 sections History of laparoscopic appendectomy Social History Social History Alcohol intake: never Patient Tobacco Use Status: Never used Tobacco Use of substances other than those prescribed or required for medical reasons: No Advance Directives: No Advance Directives Information Provided: Yes Meds Allergies Allergy/AdvReac Type Severity Reaction Status Date / Time No Known Allergies Allergy Unverified 12/30/21 11:28 [No Known Allergies*] Exam Exam Date and Time: February 24, 2022 0910 Height,Weight and Vital Signs: Height 5 ft 3 in Weight 68.946 kg Pertinent Lab Results Pertinent Lab Results: Laboratory Tests 11/17/21 11/17/21 09:46 09:46 WBC 4.4 L Hgb 13.5 Hct 41.0 Plt Count 196 Sodium 143 Potassium 4.2 Chloride 106 Carbon Dioxide 26 BUN 16 Creatinine 0.73 Assessment and Plan Assessment Anesthesia Assessment: Chart Reviewed Documented by User: Jaz Bergman MD 02/25/22 09:21 PMFSH Past Medical History Medical History (Updated 12/30/21 @ 11:57 by Kalyan Stark MD) Back pain Fibromyalgia GERD (gastroesophageal reflux disease) Gout Incisional hernia Family History Family history of problems with anesthesia: No Surgical History Surgical History History of 3 sections History of laparoscopic appendectomy History of Problems with Anesthesia: No Social History Social History Alcohol intake: never Patient Tobacco Use Status: Never used Tobacco Use of substances other than those prescribed or required for medical reasons: No Advance Directives: No Advance Directives Information Provided: Yes Meds Allergies Allergy/AdvReac Type Severity Reaction Status Date / Time No Known Allergies Allergy Unverified 12/30/21 11:28 [No Known Allergies*] Exam Airway Mallampati Class: II TM Dist: >3cm Neck ROM: Full Heart: rr Lungs: cta Assessment and Plan Final Anesthetic Review Family History of Problems with Anesthesia: No History of Problems with Anesthesia: No NPO: Yes ASA Class: II Final Preanesthetic Review: No Changes in Pt Med Stat, Meds/Allgs Chart Reviewed, Consent Obtained/Reviewed and Anes Risks/Benef Reviewed Patient Risk: Low Procedure Risk: Intermediate Anesthetic Plan Anesthetic Plan: GA Disposition: Standard PACU
[2022-02-25] VITALS (10 sets, daily range): BP systolic 95–116; BP diastolic 47–68; PULSE 18–63; RESP 16–18; TEMP 36.1–36.3; O2SAT 96–98; BMI 26.5
[2022-02-25] MEDS: Lactated Ringers 1,000 ML 100 ML IVCONT (08:09)
--- NOTE | 2022-02-25 08:12 | MHC.SHP ---
Pre-Procedural Eval Section A Date of Service: 02/25/22 Section B Chief Complaint: Incisional hernia without obstruction or gangrene Details of Present Illness: Has history of open appendicectomy, with reducible mass on the right lower quadrant incision Relevant Family History (Specify if Yes): No Relevant Social History: None Present Medications: see Short Stay Collaborative assessment Medical History: Significant History (Fibromyalgia) Allergies: Allergies Allergy/AdvReac Type Severity Reaction Status Date / Time No Known Allergies Allergy Unverified 12/30/21 11:28 [No Known Allergies*] Review of Systems Sugical H&P ROS: Negative: Constitution, Cardiovascular, Respiratory, Neurological, Psychiatric, Hem-Onc, Allergic/Immunologic, Gastrointestinal, Genitourinary, Musculoskeletal, Integumentary, Endocrine and Eyes/Ears/Nose/Throat Exam Surgical H&P Exam: Normal: HEENT, Normal: Heart, Normal: Lungs, Normal: Extremities, Normal: Skin and Normal: Neurological and Significant Findings: Abdomen (Reducible mass right lower quadrant) Plan Diagnosis/Plan: Unchanged I have reviewed the history and physical and performed a pertinent physical examination on my patient. No changes have occurred unless specified. Time Spent With Patient Time: Total time managing care of this patient today ____ minutes.
--- NOTE | 2022-02-25 09:28 | W.PM.OPN ---
Operative Note Operative Note Date of Service: 02/25/22 Narrative: Preop diagnosis: Incisional hernia, right lower quadrant from previous appendectomy Postop diagnosis: Incisional hernia, spigelian type, right lower quadrant from previous appendectomy Procedure: Repair of incisional hernia, small-sized Ventralex mesh Surgeon: Kalyan Stark MD The patient is a 51-year-old female with a reducible mass on right lower quadrant along an old open appendectomy incision. Her CAT scan what appeared to be a spigelian type hernia. She understood the technique of repair with mesh. She initially had hesitation about proceeding with mesh placement but after discussing this with her further, she says that she was agreeable to using a mesh with the repair She was brought to the operating room. She was placed supine under general anesthesia via laryngeal mask airway. The abdomen was prepped and draped in the usual sterile fashion. A surgical time-out was done. The patient received cefazolin 2 g IV preoperatively I infiltrated the planned line of incision along the old appendectomy site using lidocaine 1%. I made the incision on this transverse scar using blade 15. This was carried down through the full-thickness of the skin subcutaneous fat with electrocautery until I visualized the fascia. I palpated for any still defect. I did not feel any fascial defects nor visualize 1 but I could feel what appeared to be a weakness underneath this on this area. I therefore incised this fascia which appeared to be on the anterior sheath using electrocautery. I then visualized the psoas muscles. I gently palpated this area to feel for any defect. I did separate the muscles to explore the area until was able to find the hernia. This hernia appeared to go through the posterior she to the muscular layer without going into the anterior sheath. This was therefore consistent with a spigelian hernia as described on the CT scan. I proceeded to dissect plain hernia the muscle layer to create a pocket for the mesh. I did not enter the peritoneal cavity. I then used a small-sized Ventralex mesh under the muscle layer. This was flattened. I secured this with the muscle layer with Prolene 2 sutures using each side of the Prolene straps. The straps were then trimmed I then proceeded to close the fascia with a running Maxon 1 stitch. Hemostasis had been observed prior to this. Irrigation had been done. The subcutaneous layer was reapposed with Dexon 3-0 interrupted sutures. Skin closure was achieved with Dexon 4-0 subcuticular running stitch Surgeon dressings were applied. The area was infiltrated with Marcaine 0.5% for postop analgesia. The procedure was then completed The patient tolerated procedure well. There were no immediate complications. Initial and final counts of sponges and instruments were correct. Estimated blood loss was less than 20 cc. The patient was extubated without difficulty and transferred to the recovery room with stable vital signs.
== END 2022-02-25 12:15 | disposition home or self-care (01) ==
PROVIDERS: PCP Internal Medicine Geriatric Medicine; Visit Provider Surgery
PROC: (CPT 49591; principal; 2022-02-25 08:40)
DX: K43.2 Incisional hernia without obstruction or gangrene (principal); Z90.49 Acquired absence of other specified parts of digestive tract; M79.7 Fibromyalgia; G89.29 Other chronic pain; M54.9 Dorsalgia, unspecified; M10.9 Gout, unspecified; K21.9 Gastro-esophageal reflux disease without esophagitis; Z79.899 Other long term (current) drug therapy
CPT/HCPCS: 49591; C1781; J0690; J1100; J2250; J2405; J2795; J3010

== ENCOUNTER → 2022-03-10 08:52 | Outpatient (BNVA) | payer MEDICAID, SELFPAY | PROVIDERS: PCP Internal Medicine Geriatric Medicine; Referring Provider Internal Medicine Geriatric Medicine; Visit Provider Physician Assistant Surgical | DX: Z98.890 Other specified postprocedural states (principal); Z87.19 Personal history of other diseases of the digestive system | CPT/HCPCS: 99212 ==

== ENCOUNTER 2023-01-27 10:17 | Outpatient (REF) | payer MEDICAID, SELFPAY ==
[2023-01-27 12:56] LABS: Alanine Aminotransferase 21 U/L (0-31); Albumin Level 4.8 g/dL (3.5-5.0); Alkaline Phosphatase 70 U/L (39-117); Anion Gap 14 (12-20); Aspartate Amino Transferase 26 U/L (5-31); Bilirubin Total 0.8 mg/dL (0.0-1.0); Blood Urea Nitrogen 16 mg/dL (9-16); Calcium 10.2 mg/dL (8.4-10.2); Carbon Dioxide 30 mmol/L (22-29); Chloride 105 mmol/L (96-108); Cholesterol 231 mg/dL (<200); Estimated Glomerular Filt Rate > 60; Glucose Random 77 mg/dL (60-115); HDL Cholesterol 61 mg/dL (>40); LDL Cholesterol Calculated 160 mg/dL (<100); Potassium 4.3 mmol/L (3.3-5.1); Sodium 145 mmol/L (135-145); Total Protein 8.1 g/dL (6.5-8.0); Triglycerides 52 mg/dL (<150)
== END 2023-01-27 10:18 | disposition home or self-care (01) ==
LOC: HO.HHCL 10:17
PROVIDERS: Visit Provider Internal Medicine Geriatric Medicine
DX: Z13.1 Encounter for screening for diabetes mellitus (principal); Z13.220 Encounter for screening for lipoid disorders
CPT/HCPCS: 36415; 80053; 80061

== ENCOUNTER 2023-03-30 09:20 | Emergency (ER) | payer MEDICAID, SELFPAY ==
--- NOTE | ~2023-03-30 | XR_ITS ---
EXAMINATION: XR CHEST CLINICAL INFORMATION: Cough COMPARISON: Chest x-ray on 5 01/21/2022 TECHNIQUE: Frontal view of the chest was obtained. FINDINGS: vascularity. LUNGS: Lungs are clear. No pneumothorax is seen. BONES: Bony skeleton is intact. XR/XR chest 1V IMPRESSION: Unchanged Normal chest x-ray.
[2023-03-30 09:27] VITALS: BP 106/65; PULSE 68; RESP 177; TEMP 36.3; O2SAT 97; BMI 27.9
[2023-03-30 10:00] LABS: COVID-19 Test Negative (Negative); IDNOW Serial# 9DB6401D
--- NOTE | 2023-03-30 10:02 | ED.GENADULT ---
HPI - General Adult General Chief complaint: General Medical Stated complaint: cold like symptoms Time Seen by Provider: 03/30/23 09:34 Source: patient and family Mode of arrival: ambulatory Limitations: no limitations History of Present Illness HPI narrative: 52-year-old female history of fibromyalgia presents with fatigue, malaise, myalgias, productive cough, muscle aches and pains for the past 5 days worsening. Patient reports the symptoms came on suddenly and she just has not been feeling well. Cough was initially dry however now she has having a productive cough. She is coughing so much that she had blood-tinged sputum. Denies chest pain, shortness of breath, nausea, vomiting, diarrhea, abdominal pain, headache, vision changes, dizziness and weakness. Related Data Previous Rx's Medication Instructions Recorded lidocaine 4 % topical patch 1 patch topical DAILY PRN pain #10 05/18/21 ea acetaminophen 500 mg capsule 500 mg PO Q6H PRN fever or pain 06/21/21 (Tylophen) #14 caps cyclobenzaprine 5 mg tablet 5 mg PO Q8H PRN pain (scale score 06/21/21 7-10) 5 days #14 tabs lidocaine 5 % topical patch 1 patch topical DAILY PRN pain #30 06/21/21 (Lidoderm) ea naproxen 500 mg tablet 500 mg PO BID PRN pain 10 days #20 06/21/21 tabs oxycodone-acetaminophen 5 mg-325 1 tab PO Q4-6H PRN pain #30 tabs 02/25/22 mg tablet (Percocet) albuterol sulfate 90 mcg/actuation 2 inh inhalation Q4-6H PRN 03/30/23 breath activated powder inhaler shortness of breath or wheezing #1 ea benzonatate 100 mg capsule 100 mg PO BID PRN cough #20 caps 03/30/23 doxycycline hyclate 100 mg capsule 100 mg PO BID 10 days #20 caps 03/30/23 prednisone 20 mg tablet 40 mg (2 x 20 mg) PO DAILY 5 days 03/30/23 #10 tabs Allergies Allergy/AdvReac Type Severity Reaction Status Date / Time No Known Allergies Allergy Verified 03/10/22 09:02 [No Known Allergies*] Review of Systems Review of Systems: Yes all other systems are reviewed and are negative PMFSH Past Medical History Attestation statement: The following information was validated with the patient. Source: old records reviewed and nursing notes reviewed Medical History Incisional hernia Fibromyalgia Back pain Gout GERD (gastroesophageal reflux disease) Surgical History History of laparoscopic appendectomy History of 3 sections Social History Social History Alcohol intake: never Patient Tobacco Use Status: Never used Tobacco Advance Directives: No Physical Exam ED Vital Signs: Vital Signs - 24 hr 03/30/23 09:27 Temperature 97.3 F Pulse Rate 68 Respiratory Rate 177 H Blood Pressure 106/65 Pulse Oximetry 97 Oxygen Delivery Method Room Air BMI result Body Mass Index 27.9 Vital signs stable respiratory rate entered as 177 this was entered in error by nursing patient's respiratory rate between 17 and 18 breaths per minute Appearance: Alert.? Oriented X3.? No acute distress.? Head: Normocephalic, atraumatic, no step-offs or deformities Eyes: Pupils equal, round and reactive to light.? ENT: Pharynx normal.? Neck: Normal inspection.? Neck supple.? CVS: Normal heart rate and rhythm.? Pulses normal.? Respiratory: No respiratory distress.? Breath sounds with crackles to bilateral lower lobes and some expiratory wheezing.? Abdomen: Soft and nontender.? Skin: Skin warm and dry.? Normal skin color.? Normal skin turgor.? Extremities: No lower extremity edema.? No calf ttp. 5/5 strength to bilateral upper and lower extremities Neuro: Oriented X 3.? No motor deficit.? No sensory deficit. CN 2-12 intact Course Reevaluation(s) Reevaluation #1: COVID negative. Influenza positive. Crackles appreciated x-ray pending. Will likely treat for bacterial bronchitis or possible developing pneumonia. Will send doxycycline, albuterol, prednisone and benzonatate. Educated patient on diagnosis and treatment plan, answered all question, patient verbalizes understanding. At this time patient will be discharged home, advised to return with new or worsening symptoms. Educated on worrisome signs and symptoms and when to return. At this time I feel comfortable discharge home. Time: 10:14 Reevaluation #2: Symptoms greater than 48 hours no indication for Tamiflu. Medical Decision Making Medical Decision Making [facility] Narrative: ?29-year-old female presents with upper respiratory symptoms for the past 5 days ?Physical exam crackles to bilateral lower lobes and some expiratory wheezes ?History and physical exam concerning for viral illness (flu vs covid vs RSV) versus pneumonia versus bronchitis versus chronic lung condition.? Unlikely ACS, dissection, pulmonary embolism, acute respiratory distress.? ? ?Plan at this time viral testing, x-ray.?No Indication for labs. Differential Diagnosis Differential Diagnoses: The differential diagnosis associated with the presentation includes History and physical exam concerning for viral illness versus pneumonia versus bronchitis versus chronic lung condition.? Unlikely ACS, dissection, pulmonary embolism, acute respiratory distress.? Admission/Observation Consideration of admission/observation: Escalation of care including admission/observation considered Unlikely Lab Data [facility] Lab Attestation statement: I reviewed the patient's lab results. Labs: Lab Results 03/30/23 Range/Units 09:39 COVID-19 (SUKUMAR) Negative (Negative) COVID-19 Clin Com See Note Influenza Type A (SHAGGY) Positive A (Negative) Influenza Type B (SHAGGY) Negative (Negative) Influenza A & B Note See Note Independent Interpretation I performed an independent interpretation of an: Plain X-Ray Radiology Impression Discussion of test interpretation with radiology: I have reviewed the radiologist's reading. Prescription Management I considered prescription management with: Other (Prednisone, albuterol, benzonatate) Chronic Conditions Patient?s care impacted by: Other (Fibromyalgia) Discharge Plan Discharge Clinical Impression: Acute bronchitis, Influenza A Patient Disposition: Home, Self-Care Instructions: Acute Bronchitis (ED), Wheezing (ED) Additional Instructions: Take your medications as prescribed. If you were prescribed antibiotics today, it is important that you take your medication to their entirety, do not skip any doses, do not finish them early. Follow-up with your primary care provider this week. Return to the emergency department with new or worsening symptoms. Such as fevers, chills, chest pain, shortness of breath, nausea, vomiting, dizziness, headache, vision changes, lethargy In case of emergency call 911 Prescriptions: New doxycycline hyclate 100 mg capsule 100 mg PO BID 10 Days Qty: 20 0RF benzonatate 100 mg capsule 100 mg PO BID PRN (Reason: cough) Qty: 20 0RF prednisone 20 mg tablet 40 mg PO DAILY 5 Days Qty: 10 0RF albuterol sulfate 90 mcg/actuation aerosol powdr breath activated 2 inh inhalation Q4-6H PRN (Reason: shortness of breath or wheezing) Qty: 1 0RF No Action lidocaine 4 % adhesive patch,medicated 1 patch topical DAILY PRN (Reason: pain) Qty: 10 0RF Rx Instructions: may leave on for up to 12 hrs lidocaine [Lidoderm] 5 % adhesive patch,medicated 1 patch topical DAILY MDD remove after 12 hours PRN (Reason: pain) Qty: 30 0RF Rx Instructions: leave on most painful area for up to 12 hrs naproxen 500 mg tablet 500 mg PO BID PRN (Reason: pain) 10 Days Qty: 20 0RF cyclobenzaprine 5 mg tablet 5 mg PO Q8H PRN (Reason: pain (scale score 7-10)) 5 Days Qty: 14 0RF acetaminophen [Tylophen] 500 mg capsule 500 mg PO Q6H PRN (Reason: fever or pain) Qty: 14 0RF oxycodone-acetaminophen [Percocet] 5-325 mg tablet 1 tab PO Q4-6H PRN (Reason: pain) Qty: 30 0RF Rx Instructions: Partial Fill upon patient request. Referrals: Name,MD Aftab [Primary Care Provider] - 2 days Stand Alone Forms: Work/School Release
[2023-03-30 10:09] LABS: IDNOW Serial# 58CA691E; Influenza A Positive (Negative); Influenza B2 Negative (Negative)
== END 2023-03-30 10:33 | disposition home or self-care (01) ==
PROVIDERS: Emergency Provider Emergency Medicine; PCP Internal Medicine Geriatric Medicine
DX: J10.1 Influenza due to other identified influenza virus with other respiratory manifestations (principal); J20.9 Acute bronchitis, unspecified; R05.9 Cough, unspecified; M79.10 Myalgia, unspecified site; Z11.52 Encounter for screening for COVID-19; Z79.899 Other long term (current) drug therapy
CPT/HCPCS: 71045; 87502; 87635; 99281; 99284

== ENCOUNTER 2023-04-17 09:40 | Outpatient (AMB) | payer MEDICAID, SELFPAY ==
--- NOTE | 2023-04-17 10:33 | A.OFFVIS_ITS ---
Intake Vital Signs 04/17/23 10:37 Height 5 ft 3 in Weight 156 lb BMI 27.6 BP 132/76 Blood Pressure Location Rt brachial Position Sitting Pulse 68 Intake Visit Reasons: post incisional hernia repair Intake Note: This patient presents for a follow-up assessment status post incisional hernia repair. Patient c/o; reports no complaints at this time. Director Of Parks And Recreation Required: Yes Director Of Parks And Recreation Language: Title Abstractor Name: Patty Information Interpreted: non-clinical & clinical Accompanied by: Self / Same As Patient Allergies No Known Allergies [No Known Allergies*] Allergy (Verified 04/17/23 10:41) Medication List - Last Reconciled 04/17/23 by Kalyan Stark MD acetaminophen (Tylophen) 500 mg PO Q6H PRN albuterol sulfate 90 mcg/actuation 2 inhalations inhalation Q4-6H PRN benzonatate 100 mg PO BID PRN cyclobenzaprine 5 mg PO Q8H PRN 5 days doxycycline hyclate 100 mg PO BID 10 days lidocaine 4% 1 patch topical DAILY PRN lidocaine 5% (Lidoderm) 1 patch topical DAILY PRN MDD remove after 12 hours naproxen 500 mg PO BID PRN 10 days oxycodone-acetaminophen 5-325 mg (Percocet) 1 tab PO Q4-6H PRN prednisone 40 mg (2 x 20 mg) PO DAILY 5 days HPI post incisional hernia repair HPI Details She had undergone repair of an incisional hernia with mesh last February 2022. She is here for a regular follow-up visit she says. She just wanted the area checked She denies complaints and feels well overall. She denies any new mass on the area. [facility] Medical History Incisional hernia Fibromyalgia Back pain Gout GERD (gastroesophageal reflux disease) Surgical History History of laparoscopic appendectomy History of 3 sections Social History Alcohol intake: never Patient Tobacco Use Status: Never used Tobacco Review of Systems Const Denies chills and Denies fever(s) Card Denies chest pain, Denies dyspnea and Denies dyspnea on exertion Resp Denies cough, Denies dyspnea and Denies dyspnea on exertion GI Denies hematochezia and Denies change in bowel habits Denies hematuria Musc Denies back pain and Denies limited range of motion Neuro Denies focal weakness and Denies convulsions Psych Denies depression and Denies mood swings Physical Exam Vital Signs: Last Vital Signs Pulse 68 04/17/23 10:37 BP 132/76 04/17/23 10:37 BMI result Body Mass Index 27.6 Const General: comfortable and no acute distress Orientation/consciousness: patient oriented x3 Neck Neck: Yes no lymphadenopathy Resp Auscultation: clear to auscultation bilaterally Cardio Rhythm: regular rhythm GI Other: Repair site on the right lower quadrant is well healed, no palpable new hernias Palpation (GI): Soft to palpation, nontender and no guarding Neuro General: patient oriented x3 Assessment & Plan Assessment & Plan (1) History of incisional hernia repair: Code(s): Z98.890 - Other specified postprocedural states; Z87.19 - Personal history of other diseases of the digestive system Plan: The hernia repair site on the right lower quadrant appears intact. There is no new palpable hernia. She feels well overall. She denies any significant complaints on the area She is allowed to return to regular level of activities. She can follow up on a p.r.n. basis. Coding Level of Care Code Est Pt Level 2 (33864) Diagnoses History of incisional hernia repair Z98.890; Z87.19
[2023-04-17 10:37] VITALS: BP 132/76; PULSE 68; BMI 27.6
== END 2023-04-17 10:42 | disposition home or self-care (01) ==
PROVIDERS: PCP Internal Medicine Geriatric Medicine; Visit Provider Surgery
DX: Z98.890 Other specified postprocedural states (principal); Z87.19 Personal history of other diseases of the digestive system
CPT/HCPCS: 99212

== ENCOUNTER → 2023-04-17 09:40 | Outpatient (BNVA) | payer MEDICAID, SELFPAY | PROVIDERS: PCP Internal Medicine Geriatric Medicine; Visit Provider Surgery | DX: Z98.890 Other specified postprocedural states (principal); Z87.19 Personal history of other diseases of the digestive system | CPT/HCPCS: 99212 ==

== ENCOUNTER 2023-09-05 11:07 | Outpatient (REF) | payer MEDICAID, SELFPAY ==
[2023-09-05 12:55] LABS: MANUAL DIFF FLAG NO
[2023-09-05 13:05] LABS: Eosinophils Percent Auto 0.7 % (0-4); Hematocrit 43.6 % (37.0-47.0); Hemoglobin 14.3 g/dl (12.0-16.0); Imm Gran Abs Auto 0.01 X10*3/uL (0.00-0.03); Imm Gran Pct Auto 0.2 % (0.0-0.4); Lymphocytes Absolute Auto 1.8 X10*3/uL (1.2-4.9); Lymphocytes Percent Auto 43.9 % (20-40); Mean Corpuscular HGB Conc 32.8 g/dl (31.0-35.0); Mean Corpuscular Hemoglobin 29.4 pg (27.0-33.0); Mean Corpuscular Volume 89.5 fL (80.0-98.0); Mean Platelet Volume 11.4 fL (9.4-12.3); Monocytes Absolute Auto 0.3 X10*3/uL (0.1-1.2); Monocytes Percent Auto 6.6 % (2-11); Neutrophils Percent Auto 47.6 % (45-73); Platelet Count 195 X10*3/uL (160-400); Red Blood Count 4.87 X10*6/uL (4.20-5.50); Red Cell Distribution Width 12.9 % (11.0-16.0); White Blood Count 4.1 X10*3/uL (4.8-10.8)
[2023-09-05 13:42] LABS: Alanine Aminotransferase 21 U/L (0-31); Albumin Level 4.5 g/dL (3.5-5.0); Alkaline Phosphatase 80 U/L (39-117); Anion Gap 13 (12-20); Aspartate Amino Transferase 22 U/L (5-31); Bilirubin Total 0.5 mg/dL (0.0-1.0); Blood Urea Nitrogen 11 mg/dL (9-16); Calcium 9.7 mg/dL (8.4-10.2); Carbon Dioxide 29 mmol/L (22-29); Chloride 107 mmol/L (96-108); Cholesterol 176 mg/dL (<200); Estimated Glomerular Filt Rate > 60; Glucose Random 106 mg/dL (60-115); HDL Cholesterol 60 mg/dL (>40); LDL Cholesterol Calculated 107 mg/dL (<100); Potassium 5.2 mmol/L (3.3-5.1); Sodium 144 mmol/L (135-145); Total Protein 7.4 g/dL (6.5-8.0); Triglycerides 48 mg/dL (<150)
== END 2023-09-05 11:08 | disposition home or self-care (01) ==
LOC: HO.HHCL 11:07
PROVIDERS: Visit Provider Internal Medicine Geriatric Medicine
DX: E78.00 Pure hypercholesterolemia, unspecified (principal); E88.819 Insulin resistance, unspecified
CPT/HCPCS: 36415; 80053; 80061; 85025

== ENCOUNTER 2023-11-16 14:38 | Emergency (ER) | payer MEDICAID, SELFPAY ==
--- NOTE | ~2023-11-16 | XR_ITS ---
EXAMINATION: XR HAND/WRIST, LEFT CLINICAL INFORMATION: Pain, rule out fracture COMPARISON: August 04, 2020 TECHNIQUE: PA, lateral, and oblique views of the left hand and wrist. FINDINGS: There is no evidence of effusions or healing fracture in the left hand. There is small subchondral erosions seen in the distal metadiaphysis of the third proximal phalanx new since previous study and there is small erosion in the distal metadiaphysis of the proximal phalanx of the second finger. There is sclerotic lesion in the distal phalanx all 4 second finger consistent with enchondroma. XR/XR hand wrist LT IMPRESSION: 1. No fracture seen. 2. Small subchondral erosions in the third proximal phalanx and second proximal phalanx of the left hand. 3. 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
[2023-11-16 15:30] VITALS: BP 96/84; PULSE 78; RESP 16; TEMP 35.7; O2SAT 100; BMI 28.3
--- NOTE | 2023-11-16 15:36 | ED_ITS ---
HPI - Extremity Problem General Chief complaint: Extremity Injury, Upper Stated complaint: Stiffness R arm/hand Time Seen by Provider: 11/16/23 17:47 Source: patient Mode of arrival: ambulatory Limitations: no limitations History of Present Illness ED Provider: rojelio MON Narrative: Patient was putting clothes in the dryer and felt a popping sound the left wrist yesterday since then been having the pain in the left wrist with tingling in the left thumb and index finger no prior history of pain in the left wrist Related Data Previous Rx's ?Medication ?Instructions ?Recorded lidocaine 4 % topical patch 1 patch topical DAILY PRN pain #10 05/18/21 ea acetaminophen 500 mg capsule 500 mg PO Q6H PRN fever or pain 06/21/21 (Tylophen) #14 caps cyclobenzaprine 5 mg tablet 5 mg PO Q8H PRN pain (scale score 06/21/21 7-10) 5 days #14 tabs lidocaine 5 % topical patch 1 patch topical DAILY PRN pain #30 06/21/21 (Lidoderm) ea naproxen 500 mg tablet 500 mg PO BID PRN pain 10 days #20 06/21/21 tabs oxycodone-acetaminophen 5 mg-325 1 tab PO Q4-6H PRN pain #30 tabs 02/25/22 mg tablet (Percocet) albuterol sulfate 90 mcg/actuation 2 inh inhalation Q4-6H PRN 03/30/23 breath activated powder inhaler shortness of breath or wheezing #1 ea benzonatate 100 mg capsule 100 mg PO BID PRN cough #20 caps 03/30/23 doxycycline hyclate 100 mg capsule 100 mg PO BID 10 days #20 caps 03/30/23 prednisone 20 mg tablet 40 mg (2 x 20 mg) PO DAILY 5 days 03/30/23 #10 tabs ibuprofen 600 mg tablet 600 mg PO Q6H PRN fever or pain 11/16/23 #30 tabs Allergies Allergy/AdvReac Type Severity Reaction Status Date / Time No Known Allergies Allergy Verified 11/16/23 15:32 [No Known Allergies*] Review of Systems 2 Review of Systems: Yes all other systems are reviewed and are negative PMFSH Past Medical History Medical History Incisional hernia Fibromyalgia Back pain Gout GERD (gastroesophageal reflux disease) Surgical History History of laparoscopic appendectomy History of 3 sections Social History Social History Alcohol intake: never Patient Tobacco Use Status: Never used Tobacco Advance Directives: No Advance Directives Information Provided: No Do you have a plan to hurt others: No Plan Physical Exam 2 Vital Signs: Vital Signs: Last Vital Signs Temp 96.3 F L 11/16/23 18:21 Pulse 78 11/16/23 18:21 Resp 16 11/16/23 18:21 BP 96/84 11/16/23 18:21 Pulse Ox 100 11/16/23 18:21 O2 Del Method Room Air 11/16/23 18:21 BMI result Body Mass Index 28.3 Extrem: Hand/finger images: 1. Soft tissue swelling with tenderness on percussion tenderness in that area with tingling sensation in left thumb index finger Course Course Course Narrative: RME: [employer] by CHRISTOPHER Steinberg. 53-year-old female presents to ED for left volar wrist pain. 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 Patient denies any chest pain, shortness of breath, whole extremity swelling, redness, or any control use. Patient denies any history of blood clots. Physical exam positive for left volar wrist tenderness on palpation with pain on range of motion. Negative for crepitus ecchymosis. Vascular neuro exam intact. Motor exam intact but limited due to pain. Pain on flexion and extension of wrists. Rest of extremity normal. X-ray ordered Medications Administered Discontinued Medications Generic Name Dose Route Start Last Admin Trade Name Freq PRN Reason Stop Dose Admin Ibuprofen 600 mg 11/16/23 17:59 11/16/23 18:25 Ibuprofen 600 Mg Tablet PO 11/16/23 18:00 600 mg ONCE ONE Administration Medical Decision Making Medical Decision Making [facility] Narrative: Patient with carpal tunnel symptoms in the left wrist prior history in the past likely from swelling of the wrist band. Will give wrist splint advised ibuprofen and follow up as outpatient x-rays negative Independent Interpretation I performed an independent interpretation of an: Plain X-Ray Radiology Impression Discussion of test interpretation with radiology: I have reviewed the radiologist's reading. Radiologist Impression: Negative x-ray Discharge Plan Discharge Clinical Impression: Sprain and strain of left wrist Patient Disposition: Home, Self-Care Instructions: Wrist Sprain (ED) Additional Instructions: Wear the splint for support Ibuprofen for pain Follow with PCP if pain continues for further evaluation/for carpal tunnel syndrome Prescriptions: New ibuprofen 600 mg tablet 600 mg PO Q6H PRN (Reason: fever or pain) Qty: 30 0RF No Action lidocaine 4 % adhesive patch,medicated 1 patch topical DAILY PRN (Reason: pain) Qty: 10 0RF Rx Instructions: may leave on for up to 12 hrs lidocaine [Lidoderm] 5 % adhesive patch,medicated 1 patch topical DAILY MDD remove after 12 hours PRN (Reason: pain) Qty: 30 0RF Rx Instructions: leave on most painful area for up to 12 hrs naproxen 500 mg tablet 500 mg PO BID PRN (Reason: pain) 10 Days Qty: 20 0RF cyclobenzaprine 5 mg tablet 5 mg PO Q8H PRN (Reason: pain (scale score 7-10)) 5 Days Qty: 14 0RF acetaminophen [Tylophen] 500 mg capsule 500 mg PO Q6H PRN (Reason: fever or pain) Qty: 14 0RF oxycodone-acetaminophen [Percocet] 5-325 mg tablet 1 tab PO Q4-6H PRN (Reason: pain) Qty: 30 0RF Rx Instructions: Partial Fill upon patient request. doxycycline hyclate 100 mg capsule 100 mg PO BID 10 Days Qty: 20 0RF benzonatate 100 mg capsule 100 mg PO BID PRN (Reason: cough) Qty: 20 0RF prednisone 20 mg tablet 40 mg PO DAILY 5 Days Qty: 10 0RF albuterol sulfate 90 mcg/actuation aerosol powdr breath activated 2 inh inhalation Q4-6H PRN (Reason: shortness of breath or wheezing) Qty: 1 0RF Stand Alone Forms: Work/School Release Interventions: ED Discharge Assessment Last Done: 11/16/23 18:21 Discharge Date/Time: 11/16/23 18:25 Print Language: [place] Islander
[2023-11-16 18:21] VITALS: BP 96/84; PULSE 78; RESP 16; TEMP 35.7; O2SAT 100
[2023-11-16] MEDS: Ibuprofen 600 MG TABLET PO (18:25)
== END 2023-11-16 18:25 | disposition home or self-care (01) ==
PROVIDERS: Emergency Provider Internal Medicine; PCP Internal Medicine Geriatric Medicine
DX: S63.502A Unspecified sprain of left wrist, initial encounter (principal); M79.642 Pain in left hand; X58.XXXA Exposure to other specified factors, initial encounter; Y93.89 Activity, other specified; Y92.89 Other specified places as the place of occurrence of the external cause; Y99.8 Other external cause status
CPT/HCPCS: 29125; 73110; 73130; 99283; 99284

== ENCOUNTER 2023-12-01 20:58 | Emergency (ER) | payer MEDICAID, SELFPAY ==
--- NOTE | ~2023-12-01 | XR_ITS ---
EXAMINATION: XR HIP, RIGHT CLINICAL INFORMATION: Right hip pain. COMPARISON: Hip radiographs dated August 04, 2020. TECHNIQUE: 3 radiographs of the right hip. FINDINGS: There is no pelvic fracture. The sacroiliac joints and symphysis pubis are intact. The right hip joint is intact. No right hip fracture. The left hip joint is intact. No left hip fracture. There are surgical clips overlying the right iliac bone. XR/XR hip RT w [id number] IMPRESSION: No fracture or dislocation. Electronically signed by: David Rodriguez DO 12/02/2023 12:03 AM EDT
--- NOTE | ~2023-12-01 | XR_ITS ---
EXAMINATION: XR LUMBOSACRAL SPINE CLINICAL INFORMATION: Back pain. COMPARISON: Lumbar spine radiographs dated May 20, 2021. TECHNIQUE: Three views of the lumbosacral spine. FINDINGS: There are 5 nonrib-bearing lumbar vertebrae. Lumbar spinal alignment is anatomic in the sagittal projection. Vertebral body heights are preserved. There is stable degenerative disc disease at L5-S1. There is stable facet arthropathy at this level. No acute fracture. There are surgical clips overlying the right iliac bone. The sacroiliac joints are intact. XR/XR lumbar spine 2-3V IMPRESSION: No acute osseous lumbar spine abnormality. Degenerative disc disease and facet arthropathy at L5-S1. Electronically signed by: David Rodriguez DO 12/02/2023 12:05 AM EDT
[2023-12-01 21:02] VITALS: BP 135/82; PULSE 86; RESP 16; TEMP 35.9; O2SAT 97; BMI 29.2
--- NOTE | 2023-12-02 00:47 | ED.GENADULT ---
HPI - General Adult General Chief complaint: Extremity Injury, Lower Stated complaint: R leg pain, no injury Time Seen by Provider: 12/02/23 00:35 Source: patient and family Limitations: no limitations History of Present Illness HPI narrative: 53-year-old female presents for evaluation of acute on chronic back, right hip pain. Patient states over the past several days she has had worsening spasming of the muscles in her upper and lower back and pain radiating to the right hip. She denies any history of sciatica. She has not had any trauma. Patient states it is the same pain that she has had in the past but much worse. She has not tried any medication for this. She is ambulatory with a limp. She has been using 1 crutch in the past several days. She denies any bowel or bladder incontinence. No paresthesias or paralysis. Patient is otherwise feeling well. Related Data Previous Rx's ?Medication ?Instructions ?Recorded lidocaine 4 % topical patch 1 patch topical DAILY PRN pain #10 05/18/21 ea acetaminophen 500 mg capsule 500 mg PO Q6H PRN fever or pain 06/21/21 (Tylophen) #14 caps cyclobenzaprine 5 mg tablet 5 mg PO Q8H PRN pain (scale score 06/21/21 7-10) 5 days #14 tabs lidocaine 5 % topical patch 1 patch topical DAILY PRN pain #30 06/21/21 (Lidoderm) ea naproxen 500 mg tablet 500 mg PO BID PRN pain 10 days #20 06/21/21 tabs oxycodone-acetaminophen 5 mg-325 1 tab PO Q4-6H PRN pain #30 tabs 02/25/22 mg tablet (Percocet) albuterol sulfate 90 mcg/actuation 2 inh inhalation Q4-6H PRN 03/30/23 breath activated powder inhaler shortness of breath or wheezing #1 ea benzonatate 100 mg capsule 100 mg PO BID PRN cough #20 caps 03/30/23 doxycycline hyclate 100 mg capsule 100 mg PO BID 10 days #20 caps 03/30/23 prednisone 20 mg tablet 40 mg (2 x 20 mg) PO DAILY 5 days 03/30/23 #10 tabs ibuprofen 600 mg tablet 600 mg PO Q6H PRN fever or pain 11/16/23 #30 tabs dexamethasone 4 mg tablet 4 mg PO BID 5 days #10 tabs 12/02/23 methocarbamol 750 mg tablet 750 mg PO TID PRN muscle spasm #20 12/02/23 tabs Allergies Allergy/AdvReac Type Severity Reaction Status Date / Time No Known Allergies Allergy Verified 12/01/23 21:08 [No Known Allergies*] Review of Systems Constitutional: Constitutional: Denies chills and Denies fever(s) Cardiovascular: Cardiovascular: Denies chest pain, Denies dyspnea, Denies dyspnea on exertion and Denies orthopnea Respiratory: Respiratory: Denies cough, Denies dyspnea and Denies dyspnea on exertion Gastrointestinal: Gastrointestinal: Denies abdominal pain, Denies melena, Denies hematochezia, Denies diarrhea, Denies nausea and Denies vomiting Genitourinary: Genitourinary: Denies dysuria and Denies urinary urgency Musculoskeletal: Musculoskeletal: Reports back pain and Denies numbness Neurologic: Denies focal weakness and Denies numbness PMFSH Past Medical History Medical History Incisional hernia Fibromyalgia Back pain Gout GERD (gastroesophageal reflux disease) Surgical History History of laparoscopic appendectomy History of 3 sections Social History Social History Alcohol intake: never Patient Tobacco Use Status: Never used Tobacco Advance Directives: No Advance Directives Information Provided: Yes Physical Exam ED Vital Signs: Vital Signs - 24 hr 12/01/23 21:02 Temperature 96.7 F L Pulse Rate 86 Respiratory Rate 16 Blood Pressure 135/82 Pulse Oximetry 97 Oxygen Delivery Method Room Air BMI result Body Mass Index 29.2 Resp Other: Lung sounds clear throughout Cardio Rate: regular rate Rhythm: regular rhythm GI Other: Abdomen is soft and nontender. There is no peritoneal signs. No CVAT. No Cheung's sign. No epigastric tenderness. Medications Administered Discontinued Medications Generic Name Dose Route Start Last Admin Trade Name Freq PRN Reason Stop Dose Admin Dexamethasone 8 mg 12/02/23 00:47 12/02/23 01:08 Dexamethasone 4 Mg Tablet PO 12/02/23 00:48 8 mg ONCE ONE Administration Medical Decision Making Medical Decision Making MDM Narrative: 53-year-old female with acute on chronic back, right hip pain. X-rays demonstrating arthritis but otherwise no acute process. These were reviewed with the patient. No evidence of trauma from history or exam. Patient without any focal deficits. No sciatic notch tenderness but tenderness along the right hip. Suspect also lumbar etiology. Patient states she will follow up with her PCP. She had previously been on Flexeril but does not have any that anymore. Prescription monitoring program reviewed, no recent prescriptions. Reviewed all discharge instructions. Patient expresses understanding of all discharge instructions and has no further questions at this time. Differential Diagnosis Differential Diagnoses: The differential diagnosis associated with the presentation includes Disc herniation Sciatica Muscle spasm Nerve impingement Muscle strain Cauda equina, no evidence of Admission/Observation Consideration of admission/observation: Escalation of care including admission/observation considered Radiology Impression Discussion of test interpretation with radiology: I have reviewed the radiologist's reading. Independent Historian Clinical information obtained from an independent historian. History obtained from or confirmed by: Spouse Prescription Management I considered prescription management with: Pain Medication Discharge Plan Discharge Clinical Impression: Low back pain Qualifiers: Chronicity: acute Back pain laterality: right Sciatica presence: without sciatica Qualified Code(s): M54.50 - Low back pain, unspecified Acute hip pain Qualifiers: Laterality: right Qualified Code(s): M25.551 - Pain in right hip Patient Disposition: Home, Self-Care Instructions: Hip Pain (ED) Additional Instructions: Rest. Avoid strenuous activity. Decadron as directed. This is a steroid that will help with pain and inflammation. Robaxin as directed for pain and muscle spasm. Follow-up with your primary care provider. Call this week to schedule a follow-up appointment. Return to the emergency department if you have any worsening of symptoms, or any concerns. Get well soon! Prescriptions: New dexamethasone 4 mg tablet 4 mg PO BID 5 Days Qty: 10 0RF methocarbamol 750 mg tablet 750 mg PO TID PRN (Reason: muscle spasm) Qty: 20 0RF No Action lidocaine 4 % adhesive patch,medicated 1 patch topical DAILY PRN (Reason: pain) Qty: 10 0RF Rx Instructions: may leave on for up to 12 hrs lidocaine [Lidoderm] 5 % adhesive patch,medicated 1 patch topical DAILY MDD remove after 12 hours PRN (Reason: pain) Qty: 30 0RF Rx Instructions: leave on most painful area for up to 12 hrs naproxen 500 mg tablet 500 mg PO BID PRN (Reason: pain) 10 Days Qty: 20 0RF cyclobenzaprine 5 mg tablet 5 mg PO Q8H PRN (Reason: pain (scale score 7-10)) 5 Days Qty: 14 0RF acetaminophen [Tylophen] 500 mg capsule 500 mg PO Q6H PRN (Reason: fever or pain) Qty: 14 0RF oxycodone-acetaminophen [Percocet] 5-325 mg tablet 1 tab PO Q4-6H PRN (Reason: pain) Qty: 30 0RF Rx Instructions: Partial Fill upon patient request. doxycycline hyclate 100 mg capsule 100 mg PO BID 10 Days Qty: 20 0RF benzonatate 100 mg capsule 100 mg PO BID PRN (Reason: cough) Qty: 20 0RF prednisone 20 mg tablet 40 mg PO DAILY 5 Days Qty: 10 0RF albuterol sulfate 90 mcg/actuation aerosol powdr breath activated 2 inh inhalation Q4-6H PRN (Reason: shortness of breath or wheezing) Qty: 1 0RF ibuprofen 600 mg tablet 600 mg PO Q6H PRN (Reason: fever or pain) Qty: 30 0RF Discharge Date/Time: 12/02/23 01:31 Print Language: Ethiopian
[2023-12-02] MEDS: dexAMETHasone 4 MG TABLET 8 MG PO (01:08)
== END 2023-12-02 01:31 | disposition home or self-care (01) ==
PROVIDERS: Emergency Provider Emergency Medicine; PCP Internal Medicine Geriatric Medicine
DX: M54.50 Low back pain, unspecified (principal); M25.551 Pain in right hip
CPT/HCPCS: 72100; 73502; 99281; 99283; J8540

== ENCOUNTER 2024-01-30 11:17 | Emergency (ER) | payer MEDICAID, SELFPAY ==
--- NOTE | ~2024-01-30 | XR_ITS ---
EXAMINATION: XR LUMBOSACRAL SPINE CLINICAL INFORMATION: pain s/p fall COMPARISON: None available. TECHNIQUE: Three views of the lumbosacral spine. FINDINGS: There is degenerative change at the lumbosacral junction but no fracture or destructive process or alignment abnormality. There are surgical clips in the right mid to lower abdomen. Pelvic phleboliths are noted. XR/XR lumbar spine 2-3V IMPRESSION: No acute findings. Electronically signed by: Marquis Tenorio MD 01/30/2024 03:26 PM [facility]
--- NOTE | ~2024-01-30 | XR_ITS ---
EXAMINATION: Sacrum/coccyx series Pelvis and bilateral hips CLINICAL INFORMATION: Fall. Pain. COMPARISON: Lumbosacral spine performed same day. Pelvis bilateral hips July 2020 TECHNIQUE: Single AP view pelvis and AP and lateral views of each hip 3 views of the sacrum/coccyx FINDINGS: Right hip: Hip joint is surrounding bone and soft tissues are normal. Left hip: Hip joint is surrounding bone and soft tissues are normal. Pelvis: Hips as above. Remaining bone and joints normal. Incidental note made of surgical clips overlying the right lower quadrant. Multiple phleboliths in the pelvis. Sacrum/coccyx: No fracture or bone lesion surrounding soft tissues normal. XR/XR hip BI w [id number] IMPRESSION: No acute or significant abnormality. Electronically signed by: Serjio Barnes MD 01/30/2024 03:28 PM [facility]
--- NOTE | ~2024-01-30 | XR_ITS ---
EXAMINATION: Sacrum/coccyx series Pelvis and bilateral hips CLINICAL INFORMATION: Fall. Pain. COMPARISON: Lumbosacral spine performed same day. Pelvis bilateral hips July 2020 TECHNIQUE: Single AP view pelvis and AP and lateral views of each hip 3 views of the sacrum/coccyx FINDINGS: Right hip: Hip joint is surrounding bone and soft tissues are normal. Left hip: Hip joint is surrounding bone and soft tissues are normal. Pelvis: Hips as above. Remaining bone and joints normal. Incidental note made of surgical clips overlying the right lower quadrant. Multiple phleboliths in the pelvis. Sacrum/coccyx: No fracture or bone lesion surrounding soft tissues normal. XR/XR sacrum coccyx min 2V IMPRESSION: No acute or significant abnormality. Electronically signed by: Serjio Barnes MD 01/30/2024 03:28 PM [facility]
[2024-01-30 11:49] VITALS: BP 102/58; PULSE 71; RESP 20; TEMP 36.2; O2SAT 97; BMI 29.2
--- NOTE | 2024-01-30 11:50 | ED.FALL ---
HPI - Fall General Chief Complaint: Back Pain/Injury Stated Complaint: Fall Time Seen by Provider: 01/30/24 13:21 Source: patient Mode of arrival: ambulatory Limitations: no limitations History of Present Illness ED Provider: jerad MON Narrative: Patient is a 53-year-old female with history of fibromyalgia presenting to the emergency department with complaint of left-sided hip and lower back pain after a fall this morning. 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 States that she went to turn and lost her balance causing her to fall onto her left side. She denies head strike or loss of consciousness. She is not anticoagulated. She did need 1 of her other sons to help her up from the floor but has been able to ambulate since that time. Denies saddle anesthesia, bowel or bladder incontinence. Took ibuprofen at home with little relief. complaint: fall Onset (ago): hour(s) Fall from: standing Place fall occurred: home Loss of consciousness: none Symptoms prior to fall: none Context: tripped/slipped Location of injury: back Related Data Previous Rx's ?Medication ?Instructions ?Recorded lidocaine 4 % topical patch 1 patch topical DAILY PRN pain #10 05/18/21 ea acetaminophen 500 mg capsule 500 mg PO Q6H PRN fever or pain 06/21/21 (Tylophen) #14 caps cyclobenzaprine 5 mg tablet 5 mg PO Q8H PRN pain (scale score 06/21/21 7-10) 5 days #14 tabs lidocaine 5 % topical patch 1 patch topical DAILY PRN pain #30 06/21/21 (Lidoderm) ea naproxen 500 mg tablet 500 mg PO BID PRN pain 10 days #20 06/21/21 tabs oxycodone-acetaminophen 5 mg-325 1 tab PO Q4-6H PRN pain #30 tabs 02/25/22 mg tablet (Percocet) albuterol sulfate 90 mcg/actuation 2 inh inhalation Q4-6H PRN 03/30/23 breath activated powder inhaler shortness of breath or wheezing #1 ea benzonatate 100 mg capsule 100 mg PO BID PRN cough #20 caps 03/30/23 doxycycline hyclate 100 mg capsule 100 mg PO BID 10 days #20 caps 03/30/23 prednisone 20 mg tablet 40 mg (2 x 20 mg) PO DAILY 5 days 03/30/23 #10 tabs ibuprofen 600 mg tablet 600 mg PO Q6H PRN fever or pain 11/16/23 #30 tabs dexamethasone 4 mg tablet 4 mg PO BID 5 days #10 tabs 12/02/23 methocarbamol 750 mg tablet 750 mg PO TID PRN muscle spasm #20 12/02/23 tabs cyclobenzaprine 10 mg tablet 10 mg PO TID PRN muscle spasm #10 01/30/24 tabs lidocaine 5 % topical patch 1 patch topical DAILY #15 ea 01/30/24 Allergies Allergy/AdvReac Type Severity Reaction Status Date / Time No Known Allergies Allergy Verified 01/30/24 11:50 [No Known Allergies*] Review of Systems Review of Systems: As per HPI Yes all other systems are reviewed and are negative Constitutional: Constitutional: Reports as per HPI PMFSH Past Medical History Medical History Incisional hernia Fibromyalgia Back pain Gout GERD (gastroesophageal reflux disease) Surgical History History of laparoscopic appendectomy History of 3 sections Social History Social History Alcohol intake: never Patient Tobacco Use Status: Never used Tobacco Advance Directives: No Advance Directives Information Provided: Yes Physical Exam Vital Signs: Vital Signs: Last Vital Signs Temp 98.2 F 01/30/24 15:35 Pulse 76 01/30/24 15:35 Resp 18 01/30/24 15:35 BP 106/62 01/30/24 15:35 Pulse Ox 97 01/30/24 15:35 O2 Del Method Room Air 01/30/24 15:35 BMI result Body Mass Index 29.2 Vital signs have been reviewed and appear to be correct. Blood pressure normal. Heart rate normal. Respiratory rate normal. Temperature normal. Oxygen saturation normal. Const: General: cooperative, healthy appearing and no acute distress Orientation/consciousness: oriented to person, oriented to place, oriented to time and patient oriented x3 Limitations: no limitations HEENT: Head: Yes normocephalic and Yes atraumatic Ears: external ears normal General nose exam: Normal external nose present Face and sinus: Yes face symmetric Mouth: oropharynx normal and moist mucous membranes Throat: Yes uvula midline Eyes: Pupils: Equal, round and reactive pupils present Neck: Neck: Yes normal visual inspection and Yes supple Resp: Effort & Inspection: normal respiratory effort and able to speak in complete sentences Auscultation: clear to auscultation bilaterally Cardio: Rate: regular rate Rhythm: regular rhythm Heart sounds: S1 normal heart sound present and S2 normal heart sound present GI: Palpation (GI): Soft to palpation and nontender Auscultation: normoactive bowel sounds : General: Yes no CVA tenderness Back/Spine/Pelvis: Back: no CVA tenderness Thoracic/Lumbar Spine: thoracic and lumbar spine normal to inspection, thoraco-lumbar ROM normal, straight leg raise negative bilaterally, pain with thoraco-lumbar ROM, paraspinal muscle tenderness on the left in the upper thoracic, No thoracic spinal tenderness and No lumbar spinal tenderness Skin: General skin exam: elasticity normal and turgor normal Neuro: General: oriented to person, oriented to place, oriented to time, patient oriented x3, gait normal, tone normal, moves all extremities, Normal light touch and pain sensation, no focal motor deficits, CN's II-XI intact bilaterally and deep tendon reflexes 2+ bilaterally Cranial nerves: Yes Equal, round and reactive pupils present Cognition (Neuro): normal cognition Extrem: General: Yes full ROM, Yes no pedal edema and Yes no calf tenderness Left lower extremity: hip/thigh Details: normal to inspection, tenderness Location: of the hip Location: laterally and normal ROM Psych: Mental Status: mental status grossly normal Affect: normal affect Thought process: Normal thought process present Course Course Course Narrative: This is an RME: Additional HPI, ROS, PE not included below will be deferred to primary provider. RME assessment and note performed by: Michelle Hoffmann PA-C This is a 56-ryld-gyn-female who presents to the emergency room with complaints of bilateral hip pain and low back pain status post mechanical fall which occurred on Monday. Patient denies hitting her head or LOC. She reports that she has had bilateral hip and low back pain. No numbness or tingling into the groin. She is not on blood thinners. Plan: X-ray bilateral hips, low back, further ER evaluation needed. Medical Decision Making Medical Decision Making MDM Narrative: Patient is a 53-year-old female with history of fibromyalgia presenting to the emergency department with complaint of left-sided hip and lower back pain after a fall this morning. On exam patient is awake, A+Ox3, VS WNL, afebrile, normal neurological exam without focal deficits, physical exam findings as above. Given reported symptoms and physical exam findings, initial differential includes left hip contusion versus fracture, lumbar strain versus fracture. X-rays of lumbar spine, sacrum, coccyx and hip notable for no acute fractures. My interpretation is in agreement with the radiologist's interpretation. Patient updated on results and all questions answered. Will send prescriptions for Flexeril and lidocaine patches. Instructed patient follow-up with PCP. Return precautions discussed at bedside. Patient verbalized understanding of and agreement with plan. Differential Diagnosis Differential Diagnoses: The differential diagnosis associated with the presentation includes As per MDM. Admission/Observation Consideration of admission/observation: Escalation of care including admission/observation considered Patient would have been admitted to the hospital had their work up had any findings where hospital admission was appropriate and their clinical presentation warranted hospital admission. Independent Interpretation I performed an independent interpretation of an: Plain X-Ray Interpretation: X-rays of lumbar spine, sacrum, coccyx and hip notable for no acute fractures. Radiology Impression Discussion of test interpretation with radiology: I have reviewed the radiologist's reading. Radiologist Impression: XR/XR sacrum coccyx min 2V IMPRESSION: No acute or significant abnormality. XR/XR lumbar spine 2-3V IMPRESSION: No acute findings. XR/XR sacrum coccyx min 2V IMPRESSION: No acute or significant abnormality. External Record Review External record reviewed: Inpatient record, Office record and Outpatient record Prescription Management I considered prescription management with: Pain Medication Discharge Plan Discharge Clinical Impression: Contusion of hip, left, Lumbar strain Patient Disposition: Home, Self-Care Instructions: Low Back Strain (ED), Contusion in Adults (ED), Hip Contusion (ED) Additional Instructions: You were evaluated in the emergency department today for back and hip pain. Your evaluation did not show signs of medical conditions requiring emergent intervention at this time. We recommended that you use ibuprofen or Tylenol per package directions every 6 hours as needed for pain. If necessary, you can alternate these medications so that you take one medication every 3 hours. For instance, at noon take ibuprofen, then at 3:00 p.m. take Tylenol, then at 6:00 p.m. take ibuprofen. You have been prescribed a muscle relaxer which you may take every 8 hours as needed for spasms. You have been prescribed 5% topical lidocaine patches which you can wear for up to 12 hours in a 24 hour period. Do not apply heat directly over the patches. Please schedule an appointment for follow-up with your primary care physician this week for further evaluation of your symptoms. Return to the emergency department if you experience worsening back pain, difficulty walking, fevers, numbness, tingling, incontinence, groin numbness or tingling, or any other concerning symptoms. Prescriptions: New lidocaine 5 % adhesive patch,medicated 1 patch topical DAILY Qty: 15 0RF Rx Instructions: leave on most painful area for up to 12 hrs cyclobenzaprine 10 mg tablet 10 mg PO TID PRN (Reason: muscle spasm) Qty: 10 0RF No Action lidocaine 4 % adhesive patch,medicated 1 patch topical DAILY PRN (Reason: pain) Qty: 10 0RF Rx Instructions: may leave on for up to 12 hrs lidocaine [Lidoderm] 5 % adhesive patch,medicated 1 patch topical DAILY MDD remove after 12 hours PRN (Reason: pain) Qty: 30 0RF Rx Instructions: leave on most painful area for up to 12 hrs naproxen 500 mg tablet 500 mg PO BID PRN (Reason: pain) 10 Days Qty: 20 0RF cyclobenzaprine 5 mg tablet 5 mg PO Q8H PRN (Reason: pain (scale score 7-10)) 5 Days Qty: 14 0RF acetaminophen [Tylophen] 500 mg capsule 500 mg PO Q6H PRN (Reason: fever or pain) Qty: 14 0RF oxycodone-acetaminophen [Percocet] 5-325 mg tablet 1 tab PO Q4-6H PRN (Reason: pain) Qty: 30 0RF Rx Instructions: Partial Fill upon patient request. doxycycline hyclate 100 mg capsule 100 mg PO BID 10 Days Qty: 20 0RF benzonatate 100 mg capsule 100 mg PO BID PRN (Reason: cough) Qty: 20 0RF prednisone 20 mg tablet 40 mg PO DAILY 5 Days Qty: 10 0RF albuterol sulfate 90 mcg/actuation aerosol powdr breath activated 2 inh inhalation Q4-6H PRN (Reason: shortness of breath or wheezing) Qty: 1 0RF ibuprofen 600 mg tablet 600 mg PO Q6H PRN (Reason: fever or pain) Qty: 30 0RF dexamethasone 4 mg tablet 4 mg PO BID 5 Days Qty: 10 0RF methocarbamol 750 mg tablet 750 mg PO TID PRN (Reason: muscle spasm) Qty: 20 0RF Print Language: Tajik
[2024-01-30 15:35] VITALS: BP 106/62; PULSE 76; RESP 18; TEMP 36.8; O2SAT 97
[2024-01-30 16:09] VITALS: BP 124/68; PULSE 65; RESP 16; TEMP 36.9; O2SAT 98
[2024-01-30 16:15] VITALS: BP 124/68; PULSE 65; RESP 16; TEMP 36.9; O2SAT 98
== END 2024-01-30 16:16 | disposition home or self-care (01) ==
PROVIDERS: Emergency Provider Emergency Medicine; PCP Internal Medicine Geriatric Medicine
DX: S70.02XA Contusion of left hip, initial encounter (principal); S39.012A Strain of muscle, fascia and tendon of lower back, initial encounter; W18.30XA Fall on same level, unspecified, initial encounter; Y93.9 Activity, unspecified; Y92.9 Unspecified place or not applicable; Y99.9 Unspecified external cause status; M25.552 Pain in left hip
CPT/HCPCS: 72100; 72220; 73521; 99283; 99284

== ENCOUNTER 2024-11-08 09:39 | Emergency (ER) | payer MEDICAID, SELFPAY ==
[2024-11-08 09:50] VITALS: BP 120/57; PULSE 68; RESP 16; TEMP 36.4; O2SAT 97; BMI 29.2
--- NOTE | 2024-11-08 09:50 | ED.GENADULT ---
HPI - General Adult General Chief complaint: Extremity Problem Stated complaint: L Hand Swelling Pain Time Seen by Provider: 11/08/24 09:50 Source: patient, RN notes reviewed and old records reviewed Mode of arrival: ambulatory Limitations: no limitations History of Present Illness ED Provider: Nuria HPI narrative: 54-year-old female presents for evaluation of left hand and wrist pain. She reports that her symptoms started this morning pain Yesterday she was cleaning a fence and deck for several hours. 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 Denies any trauma or injury to the hand or wrist sprain Denies any fevers or chills She is right-hand dominant Related Data Previous Rx's ?Medication ?Instructions ?Recorded lidocaine 4 % topical patch 1 patch topical DAILY PRN pain #10 05/18/21 ea acetaminophen 500 mg capsule 500 mg PO Q6H PRN fever or pain 06/21/21 (Tylophen) #14 caps cyclobenzaprine 5 mg tablet 5 mg PO Q8H PRN pain (scale score 06/21/21 7-10) 5 days #14 tabs lidocaine 5 % topical patch 1 patch topical DAILY PRN pain #30 06/21/21 (Lidoderm) ea naproxen 500 mg tablet 500 mg PO BID PRN pain 10 days #20 06/21/21 tabs oxycodone-acetaminophen 5 mg-325 1 tab PO Q4-6H PRN pain #30 tabs 02/25/22 mg tablet (Percocet) albuterol sulfate 90 mcg/actuation 2 inh inhalation Q4-6H PRN 03/30/23 breath activated powder inhaler shortness of breath or wheezing #1 ea benzonatate 100 mg capsule 100 mg PO BID PRN cough #20 caps 03/30/23 doxycycline hyclate 100 mg capsule 100 mg PO BID 10 days #20 caps 03/30/23 prednisone 20 mg tablet 40 mg (2 x 20 mg) PO DAILY 5 days 03/30/23 #10 tabs ibuprofen 600 mg tablet 600 mg PO Q6H PRN fever or pain 11/16/23 #30 tabs dexamethasone 4 mg tablet 4 mg PO BID 5 days #10 tabs 12/02/23 methocarbamol 750 mg tablet 750 mg PO TID PRN muscle spasm #20 12/02/23 tabs cyclobenzaprine 10 mg tablet 10 mg PO TID PRN muscle spasm #10 01/30/24 tabs lidocaine 5 % topical patch 1 patch topical DAILY #15 ea 01/30/24 Allergies Allergy/AdvReac Type Severity Reaction Status Date / Time No Known Allergies (No Known Allergy Verified 11/08/24 09:52 Allergies*) Review of Systems Constitutional: Constitutional: Denies chills, Denies fatigue and Denies fever(s) Musculoskeletal: Musculoskeletal: Reports arthralgias, Reports joint swelling and Reports limited range of motion Integumentary/Breasts: Skin/Breast: Denies erythema Endocrine: Endocrine: Denies fatigue PMFSH Past Medical History Medical History Incisional hernia Fibromyalgia Back pain Gout GERD (gastroesophageal reflux disease) Surgical History History of laparoscopic appendectomy History of 3 sections Social History Social History Alcohol intake: never Patient Tobacco Use Status: Never used Tobacco Advance Directives: No Advance Directives Information Provided: Yes Physical Exam ED Vital Signs: Vital Signs - 24 hr 11/08/24 09:50 Temperature 97.6 F Pulse Rate 68 Respiratory Rate 16 Blood Pressure 120/57 L Pulse Oximetry 97 Oxygen Delivery Method Room Air BMI result Body Mass Index 29.2 Const General: healthy appearing, comfortable, no acute distress, alert and awake Nutritional Appearance: well nourished Orientation/consciousness: patient oriented x3 HENMT Head: Yes normocephalic and Yes atraumatic Eyes Eyelids: Yes eyelids normal Conjunctivae: conjunctivae normal Sclerae: sclerae normal Corneas: corneas normal Pupils: Equal, round and reactive pupils present EOM: EOMs intact bilaterally Neck Neck: Yes full ROM Resp Effort & Inspection: normal respiratory effort, able to speak in complete sentences and not labored Skin General skin exam: elasticity normal Neuro General: patient oriented x3 Cranial nerves: Yes Equal, round and reactive pupils present and Yes Bilaterally intact EOM present Cognition (Neuro): normal cognition Extrem Other: There was a positive Tinel test on the left upper extremity. No obvious visual or palpable deformity. No overlying skin changes including ecchymosis, erythema, no wounds or rashes. No edema. Radial pulses 2+ and equal Medical Decision Making Medical Decision Making [facility] Narrative: 54-year-old female presents for evaluation of left hand and wrist sprain that has atraumatic but started after using her left upper extremity while cleaning for several weeks yesterday. With a positive Tinel test with the patient likely has carpal tunnel syndrome. There was no trauma, I do not see any indication for x-ray imaging at this time. No evidence of infectious processes. Patient will be treated with symptomatic care Differential Diagnosis Differential Diagnoses: The differential diagnosis associated with the presentation includes Carpal tunnel syndrome Left wrist sprain Contusion Arthritis Tests considered The following testing was considered but not selected: Consider x-ray of the left wrist but ultimately deferred due to lack of trauma no objective findings on exam. Discharge Plan Discharge Clinical Impression: Acute carpal tunnel syndrome Patient Disposition: Home, Self-Care Instructions: Carpal Tunnel Syndrome (DC) Additional Instructions: Your history exam is most consistent with carpal tunnel syndrome. I recommend wearing the splint/brace while you were active. You may take it off while you are resting and sleeping. Apply ice to the swollen area every 4 hours for 10-15 minutes. Use ibuprofen as needed for pain and swelling. The most important thing for you is to rest and not use the left hand or arm for about 1 week. You may follow up with your primary doctor, return for new or worsening symptoms. You may also follow up with the hand surgery if your symptoms do not improve Prescriptions: No Action lidocaine 4 % adhesive patch,medicated 1 patch topical DAILY PRN (Reason: pain) Qty: 10 0RF Rx Instructions: may leave on for up to 12 hrs lidocaine [Lidoderm] 5 % adhesive patch,medicated 1 patch topical DAILY MDD remove after 12 hours PRN (Reason: pain) Qty: 30 0RF Rx Instructions: leave on most painful area for up to 12 hrs naproxen 500 mg tablet 500 mg PO BID PRN (Reason: pain) 10 Days Qty: 20 0RF cyclobenzaprine 5 mg tablet 5 mg PO Q8H PRN (Reason: pain (scale score 7-10)) 5 Days Qty: 14 0RF acetaminophen [Tylophen] 500 mg capsule 500 mg PO Q6H PRN (Reason: fever or pain) Qty: 14 0RF oxycodone-acetaminophen [Percocet] 5-325 mg tablet 1 tab PO Q4-6H PRN (Reason: pain) Qty: 30 0RF Rx Instructions: Partial Fill upon patient request. doxycycline hyclate 100 mg capsule 100 mg PO BID 10 Days Qty: 20 0RF benzonatate 100 mg capsule 100 mg PO BID PRN (Reason: cough) Qty: 20 0RF prednisone 20 mg tablet 40 mg PO DAILY 5 Days Qty: 10 0RF albuterol sulfate 90 mcg/actuation aerosol powdr breath activated 2 inh inhalation Q4-6H PRN (Reason: shortness of breath or wheezing) Qty: 1 0RF ibuprofen 600 mg tablet 600 mg PO Q6H PRN (Reason: fever or pain) Qty: 30 0RF dexamethasone 4 mg tablet 4 mg PO BID 5 Days Qty: 10 0RF methocarbamol 750 mg tablet 750 mg PO TID PRN (Reason: muscle spasm) Qty: 20 0RF lidocaine 5 % adhesive patch,medicated 1 patch topical DAILY Qty: 15 0RF Rx Instructions: leave on most painful area for up to 12 hrs cyclobenzaprine 10 mg tablet 10 mg PO TID PRN (Reason: muscle spasm) Qty: 10 0RF Referrals: Precious Parsons MD [Physician, Hand Surgery] Referral Note: acute carpal tunnel left wrist Print Language: Ukrainian
[2024-11-08 10:04] VITALS: BP 120/57; PULSE 68; RESP 16; TEMP 36.4; O2SAT 97
--- OUTSIDE RECORDS SUMMARY | 2024-11-08 10:30 | XMS_ITS | Clinical Summary ---
Author Organization [employer] Address [address] [place] [address] [address] [place] [address] Care Team Providers Care Rn Behavioral Health Name Role Phone Name, Aftab WEST Primary Care Provider [phone] Allergies No known active allergies Medications B Complex Vitamins (vitamin B complex) tabletIndication s:Fibromyalgia USE ONE TABLET ONCE A DAY 90 tablet 2 06/17/2022 Active naproxen (Naprosyn) 500 MG tabletIndication s:Chronic low back pain without sciatica, unspecified back pain laterality Take 1 tablet (500 mg) by mouth every 12 (twelve) hours. 60 tablet 3 08/13/2024 Active Active Problems Problem Noted Date Diagnosed Date Benign liver cyst 05/25/2023 Incisional hernia 05/25/2023 Spigelian hernia 05/25/2023 History of incisional hernia repair 05/25/2023 Fibromyalgia 10/12/2022 Encounter for screening for malignant neoplasm o f cervix 10/10/2022 Atypical squamous cell lerma es of undetermined significance (ASCUS) on cervical cytology with negative high risk human papilloma virus (HPV) test result 10/10/2022 Stress 10/10/2022 Chronic hip pain, bilateral 10/10/2022 Hypercholesterolemia 10/10/2022 Insulin resistance 10/10/2022 Dental calculus 04/08/2022 Periodontal disease 04/08/2022 Class 1 obesity 03/17/2022 Tubular adenoma of colon 03/17/2022 Overview (10/10/2022): 01/12/2016 18:51 ALFRED Sampson MD, Triston Alonso Needs repeat screening colonoscopy in 5 years tubular adenoma of colon, repeat screning colonoscopy in 18:51 ALFRED Sampson MD, Triston Alonso Needs repeat screening colonoscopy in 5 years Colon polyps 03/17/2022 Perimenopause 03/17/2022 Hemorrhoids 03/17/2022 Disorder of intervertebral disc 03/17/2022 H/O hernia repair 03/17/2022 Prediabetes 03/31/2021 Colonic constipation 04/29/2015 Chronic back pain 04/29/2015 Migraine 04/29/2015 Resolved Problems Problem Noted Date Diagnosed Date Resolved Date Acute bronchitis 05/25/2023 09/05/2023 Back muscle spasm 05/25/2023 08/13/2024 Influenza A 05/25/2023 09/05/2023 Thoracic back pain 05/25/2023 Anemia 05/25/2018 08/13/2024 Encounters Date Type Department Care Team Description 08/13/2024 10:00 AM EDT Office Visit [facility] [address] [place] [address] Name, MD Aftab Prediabetes (Primary Dx); Chronic low back pain without sciatica, unspecified back pain laterality 08/13/2024 Travel 08/12/2024 Telephone [facility] [address] [place] [address] Milan Bush [place] chart prep from Last 3 Months Immunizations Immunization Administration Dates Next Due Hep B, adult 03/13/2013,02/06/2013,01/02/2013 Influenza injectable quadriv alent preservative free 11/14/2012 Influenza, IIV3, injectable 11/14/2012, 1,03/04/2010 MMR 01/25/2012 Tdap 12/21/2011 Family History Medical History Relation Name Comments Diabetes Father Diabetes Mother Diabetes Sister Relation Name Status Comments Father Mother Sister Social History Tobacco Use Types Packs/Day Years Used Date Smoking Tobacco: Never Passive Smoke Exposure: Never Smokeless Tobacco: Never Tobacco Cessation:Counseling Given: Not Answered Alcohol Use Standard Drinks/Week Comments Never 0 (1 standard drink = 0.6 oz pur e alcohol) Depression Answer Date Recorded Patient Health Questionnaire-9 Score 0 08/13/2024 Patient Health Questionnaire-9 Score 0 08/13/2024 Last PHQ-9: Questionnaire Data Not on file 0 08/13/2024 Housing Stability Answer Date Recorded What is your housing situation today? I have luis angel page 08/13/[address] you li ve. Do you have problems with any of the following? None of the above 08/13/2024 Food Insecurity Answer Date Recorded Within the past 12 months, y ou worried that your food would run out before you got money to buy more: Sometimes True 2024 Within the past 12 months,th e food you bought just didn't last and you didn't have enough money to get more: Sometimes True 08/13/2024 Transportation Answer Date Recorded In the past 12 months, has l ack of transportation kept you from medical appts, meetings, work or from getting things needed for daily living? No 08/13/2024 Utilities Answer Date Recorded In the past 12 months, has t he electric, gas, oil or water company threatened to shut off services in your home? No 08/13/2024 Depression Answer Date Recorded Patient Health Questionnaire-2 Score 0 08/13/2024 Internet Access Answer Date Recorded Internet Access Q1 Yes 08/13/2024 Internet Access Q2 Not on file 08/13/2024 Comments Unknown Sex and Gender Information Value Date Recorded Sex Assigned at Female 12/20/2021 10:29 AM EDT Legal Sex Female 10:29 AM EDT Gender Identity Female 12/20/2021 10:29 AM EDT Sexual Orientation Straight 12/20/2021 10 :29 AM EDT Last Filed Vital Signs Vital Sign Reading Time Taken Comments Blood Pressure 125/62 08/13/2024 10:04 AM EDT Pulse 84 08/13/2024 10:04 AM EDT Temperature 36.4 C (97.6 F) 08/13/2024 10:04 AM EDT Respiratory Rate 14 08/13/2024 10:04 AM EDT Oxygen Saturation 98% 08/13/2024 10:04 AM EDT Inhaled Oxygen Concentration - - Weight 71.7 kg (158 lb) 08/13/2024 10:04 AM EDT Height 160 cm (5' 3 ) 08/13/2024 10:04 AM EDT Body Mass Index 27.99 08/13/2024 10:04 AM EDT Plan of Treatment Health Maintenance Due Date Last Done Comments CT Colonography 1969 FIT DNA/Cologuard 1969 FIT 1969 FOBT 1969 HIV Screening 1969 Sigmoidoscopy 1969 Disability Screening 1969 Alcohol/Substance Use Screening 1981 Hepatitis C Screening 05/04/1987 Hepatitis A Vaccines (1 of 2 - Risk 2-dose series) 1988 Hepatitis B Vaccines (3 of 3 - 19+ 3-dose series) 07/02/2013 03/13/2013, 02/06/2013, 01/02/2013 Pneumococcal Vaccine: 50+ Years (1 of 1 - PCV) 05/04/2019 Zoster Vaccines (1 of 2) 05/04/2019 DTaP/Tdap/Td Vaccines (2 - Td or Tdap) 12/20/2021 12/21/2011 Dental Prophylaxis 01/24/2024 07/24/2023, 04/08/2022 Dental Oral Exam 04/19/2024 10/17/2023, 04/08/2022 Dental X-Ray: Bitewings 07/24/2024 07/24/2023, 04/08 COVID-19 Vaccine ( - season) 2024 Influenza Vaccine (#1) 2024 3, 11/14/2012, 12/22/2010, Additional history exists Dental X-Ray: Full Mouth 04/09/2025 04/08/2022 Mammogram 06/11/2025 06/11/2024, 04/0 03/2023, 05/04/2022 Depression Screening 08/13/2025 08/13/2024, 08/14/19 25 Diabetes: Hemoglobin A1C 08/13/2025 025, 12/29/2023, 03/29/2021, Additional history exists SDOH Screening 08/13/2025 08/13/2024 Tobacco Screening 08/13/2025 08/13/2024 Colonoscopy 01/13/2026 01/13/2021, 01/13/2021 Colorectal Cancer Screening 01/13/2026 Cervical Cancer Screening 05/27/2027 HPV/Cotest 05/27/2027 Pap Smear 05/27/2027 05/26/2022 RSV Patients and Patients Aged 60 years or older (1 - 1-dose 75+ series) 2044 HIB Vaccines Aged Out No longer eligi ble based on patient's age to complete this topic HPV Vaccines Aged Out No longer eligi ble based on patient's age to complete this topic IPV Vaccines Aged Out No longer eligi ble based on patient's age to complete this topic Meningococcal B Vaccine Aged Out No l onger eligible based on patient's age to complete this topic Meningococcal Vaccine Aged Out No franca ivonne eligible based on patient's age to complete this topic RSV under 20 months Aged Out No longe r eligible based on patient's age to complete this topic Rotavirus Vaccines Aged Out No longer eligible based on patient's age to complete this topic Procedures Procedure Name Priority Date/Time Associated Diagnosis Comments POCT GLYCATED HEMOGLOBIN, TOTAL Routine 08/13/2024 10:04 AM EDT Prediabetes PERIODIC ORAL EVALUATION - ESTABLISHED PATIENT Routine 10/17/2023 8:30 AM EDT Encounter for dental examination Dental calculus Full PROPHYLAXIS - ADULT Routine 07/24/2023 11:00 AM EDT Periodontal disease Dental calculus BITEWINGS - 4 RADIOGRAPHIC IMAGES Routine 07/24/2023 11:00 AM EDT Periodontal disease Dental calculus HM MAMMOGRAPHY Routine 05/23/2023 HM PAP/HPV Routine 05/26/2022 12:00 AM EDT INTRAORAL - COMPLETE SERIES OF RADIOGRAPHIC IMAGES Routine 04/08/2022 9:00 AM EST HM COLONOSCOPY Routine 01/13/2021 10:17 AM EST from Last 3 Months or Most Recently Relevant to Health Maintenance Results * POCT HGB A1C (08/13/2024 10:04 AM EDT) Hemoglobin A1C 5.9 4.0 - 6.0 % QC Media Lot # [id number] Lot# Expiration Date Blood 08/13/2024 10:0 4 AM EDT us Aftab Name POINT OF CARE TEST ENTER/EDIT OR DERABLES Final Result * Hm Mammography (05/23/2023) HM Mammogram BIRADS 1 Normal, Abnormal, BIRADS 1 , BIRADS 2 Anatomical Region Laterality Modality Other Aftab Acharya MD HEALTH MAINTENANCE Final Result * Pap Smear (05/26/2022 12:00 AM EDT) Historical Provider HEALTH MAINTENANCE Final Result * Colonoscopy (01/13/2021 10:17 AM EST) Colonoscopy Normal Normal Narrative Verito Ruiz - 01/13/2021 10:17 AM EST Recommended 5 year follow up Historical Provider HEALTH MAINTENANCE Final Result from Last 3 Months or Most Recently Relevant to Health Maintenance Insurance [facility] C3 DENTAL-[facility] MEDICAID STAND ADULT Care Teams Rn Behavioral Health Relationship Specialty Start Date End Date Name, MD Aftab [address] [place] [id number] PCP - General Family Medicine 04/29/15
--- OUTSIDE RECORDS SUMMARY | 2024-11-08 10:30 | XMS_ITS | Encounter Summary ---
Author Organization [employer] Address [address] [place] [address] [address] [place] [address] Care Team Providers Care Company Marker Name Role Phone Name, Aftab WEST Primary Care Provider [phone] Encounter Details Date Type Department Care Team (Late st Contact Info) Description 04/26/2022 Abstract [facility] [address] [place], [place] [phone] Angel Tarango DDS [address] [place], [place] [phone] Social History Tobacco Use Types Packs/Day Years Used Date Smoking Tobacco: Never Passive Smoke Exposure: Never Smokeless Tobacco: Never Depression Answer Date Recorded Patient Health Questionnaire-2 Score 0 03/17/2022 Comments Unknown Sex and Gender Information Value Date Recorded Sex Assigned at Female 12/20/2021 10:29 AM EDT Legal Sex Female 10:29 AM EDT Gender Identity Female 12/20/2021 10:29 AM EDT Sexual Orientation Straight 12/20/2021 10 :29 AM EDT COVID-19 Exposure Response Date Recorded In the last 10 days, have yo u been in contact with someone who was confirmed or suspected to have Coronavirus/COVID-19? No / Unsure 04/20/2022 6:02 PM EST documented as of this encounter Plan of Treatment Not on file documented as of this encounter Visit Diagnoses Not on filedocumented in this encounter Care Teams Company Marker Relationship Specialty Start Date End Date Name, MD Aftab [address] [place], [place] [phone] PCP - General Family Medicine 04/29/15 documented as of this encounter
--- OUTSIDE RECORDS SUMMARY | 2024-11-08 10:30 | XMS_ITS | Encounter Summary ---
Author Organization [employer] Address [address] [place] [address] [address] [place] [address] Care Team Providers Care Senior Analytical Chemist Name Role Phone Name, Aftab WEST Primary Care Provider Encounter Details Date Type Department Care Team ([facility] st Contact Info) Description 07/11/2022 Abstract [facility] [address] [place], [place] [phone] Name, MD Aftab [address] [place], [place] [phone] Social History Tobacco Use Types Packs/Day Years [...] suspected to have Coronavirus/COVID-19? No / Unsure 07/12/2022 10:28 AM EDT documented as of this encounter Plan of Treatment Not on file documented as of this encounter Procedures Procedure Name Priority Date/Time Associated Diagnosis Comments HM PAP/HPV Routine 05/26/2022 12:00 AM EDT HM COLONOSCOPY Routine 01/13/2021 10:17 AM EST documented in this encounter Results * Hm Pap Smear (05/26/2022 12:00 AM EDT) us Historical Provider HEALTH MAINTENANCE Final Result * Hm Colonoscopy (01/13/2021 10:17 AM EST) Colonoscopy Normal Normal Narrative Verito Ruiz - 01/13/2021 10:17 AM EST Recommended 5 year follow up us Historical Provider HEALTH MAINTENANCE Final Result documented in this encounter Visit Diagnoses Not on filedocumented in this encounter Care Teams Senior Analytical Chemist Relationship Specialty Start Date End Date Name, MD Aftab [address] [place] [address] PCP - General Family Medicine 04/29/15 documented as of this encounter
--- OUTSIDE RECORDS SUMMARY | 2024-11-08 10:30 | XMS_ITS | Encounter Summary ---
Author Organization [employer] Address [address] [place] [address] [address] [place] [address] Care Team Providers Care Certified Alcohol Drug Counselor Name Role Phone Name, Aftab WEST Primary Care Provider [phone] Encounter Details Date Type Department Care Team (Late st Contact Info) Description 04/26/2022 Abstract [facility] [address] [place], [place] [phone] Angel Tarango DDS [address] [place], [place] [phone] Social History Tobacco Use Types Packs/Day Years [...] on filedocumented in this encounter Care Teams Certified Alcohol Drug Counselor Relationship Specialty Start Date End Date Name, MD Aftab [address] [place], [place] [phone] PCP - General Family Medicine 04/29/15 documented as of this encounter
== END 2024-11-08 10:05 | disposition home or self-care (01) ==
LOC: HO.ED 09:58
PROVIDERS: Emergency Provider Emergency Medicine Emergency Medical Services; PCP Internal Medicine Geriatric Medicine
DX: G56.02 Carpal tunnel syndrome, left upper limb (principal); R60.0 Localized edema
CPT/HCPCS: 99282

== ENCOUNTER 2024-11-30 15:20 | Emergency (ER) | payer MEDICAID, SELFPAY ==
--- NOTE | ~2024-11-30 | XR_ITS ---
CLINICAL HISTORY: right low back pain 3 views lumbar spine Comparison: CR/SR - XR LUMBAR SPINE 2-3 VIEWS - 01/30/24 12:47 EST CR/SR - XR LUMBAR SPINE 2-3 VIEWS - 12/01/23 21:53 EDT Findings: Normal alignment. No acute fractures or dislocation. Multilevel disc space narrowing and endplate osteophyte formation, as well as facet hypertrophy. IMPRESSION: No acute findings. This document has been electronically signed by: Maria Elena Rojas MD on 11/30/2024 16:46:43
[2024-11-30 15:23] VITALS: BP 130/63; PULSE 76; RESP 15; TEMP 36.3; O2SAT 97; BMI 27.5
--- NOTE | 2024-11-30 15:24 | ED_ITS ---
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 Patient states that over the last 2 days she has had right sided low back pain that radiates into the right upper leg and is worse with deep breathing. Patient denies any other complaints at this time. Related Data Previous Rx's ?Medication ?Instructions ?Recorded lidocaine 4 % topical patch 1 patch topical DAILY PRN pain #10 05/18/21 ea acetaminophen 500 mg capsule 500 mg PO Q6H PRN fever o r pain 06/21/21 (Tylophen) #14 caps cyclobenzaprine 5 mg tablet 5 mg PO Q8H PRN pain (scal e score 06/21/21 7-10) 5 days #14 tabs lidocaine 5 % topical patch 1 patch topical DAILY PRN pain #30 06/21/21 (Lidoderm) ea naproxen 500 mg tablet 500 mg PO BID PRN pain 10 da ys #20 06/21/21 tabs oxycodone-acetaminophen 5 mg-325 1 tab PO Q4-6H PRN pa in #30 tabs 02/25/22 mg tablet (Percocet) albuterol sulfate 90 mcg/actuation 2 inh inhalation Q4 -6H PRN 03/30/23 breath activated powder inhaler shortness of breath or wheezing #1 ea benzonatate 100 mg capsule 100 mg PO BID PRN cough #20 caps 03/30/23 doxycycline hyclate 100 mg capsule 100 mg PO BID 10 da ys #20 caps 03/30/23 prednisone 20 mg tablet 40 mg (2 x 20 mg) PO DAILY 5 days 03/30/23 #10 tabs ibuprofen 600 mg tablet 600 mg PO Q6H PRN fever or p ain 11/16/23 #30 tabs dexamethasone 4 mg tablet 4 mg PO BID 5 days #10 tabs 10/12/24 methocarbamol 750 mg tablet 750 mg PO TID PRN muscle s pasm #20 12/02/23 tabs cyclobenzaprine 10 mg tablet 10 mg PO TID PRN muscle s pasm #10 01/30/24 tabs lidocaine 5 % topical patch 1 patch topical DAILY #15 ea 01/30/24 cyclobenzaprine 5 mg tablet 5 mg PO TID PRN muscle spa sm 7 11/30/24 days #21 tabs prednisone 20 mg tablet 40 mg (2 x 20 mg) PO DAILY C OPD 11/30/24 exacerbation 5 days #10 tabs Allergies Allergy/AdvReac Type Severity Reaction Status Date / Time No Known Allergies (No Known Allergy Verified 11/30/24 15:26 Allergies*) Review of Systems 2 Constitutional: Constitutional: Reports as per HPI Eyes: Eyes: Reports as per HPI ENT: Reports as per HPI Cardiovascular: Cardiovascular: Reports as per HPI Respiratory: Respiratory: Reports as per HPI Gastrointestinal: Gastrointestinal: Reports as per HPI Genitourinary: Genitourinary: Reports as per HPI Musculoskeletal: Musculoskeletal: Reports as per HPI Integumentary/Breasts: Skin/Breast: Reports as per HPI Neurologic: Reports as per HPI Psychiatric: Psychiatric: Reports as per HPI Endocrine: Endocrine: Reports as per HPI Hematologic/Lymphatic: Hematologic/Lymphatic: Reports as per HPI Allergic/Immunologic: Allergic/Immunologic: Reports as per HPI PMF Past Medical History Attestation statement: The following information was validated with the patient. Source: old records reviewed and nursing notes reviewed Medical History Incisional hernia Fibromyalgia Back pain Gout GERD (gastroesophageal reflux disease) Surgical History History of laparoscopic appendectomy History of 3 sections Social History Social History Alcohol intake: never Patient Tobacco Use Status: Never used Tobacco Smoked in Last 30 Days: No Use of substances other than those prescribed or required for medical reasons: No Advance Directives: No Advance Directives Information Provided: Yes Do you have a plan to hurt others: No Plan Physical Exam ED Vital Signs: Vital Signs - 24 hr 11/30/24 15:23 11/30/24 17:05 10/11/25 17:07 Temperature 97.3 F 98 F 98 F Pulse Rate 76 76 76 Respiratory Rate 15 18 18 Blood Pressure 130/63 121/66 121/66 Pulse Oximetry 97 98 98 Oxygen Delivery Method Room Air BMI result Body Mass Index 27.5 Const General: cooperative, no acute distress, alert and awake Nutritional Appearance: well nourished Orientation/consciousness: patient oriented x3 HENMT Head: Yes normal to inspection and Yes atraumatic Ears: hearing grossly normal bilaterally and external ears normal General nose exam: Normal external nose present, no nasal discharge noted and no epistaxis Face and sinus: Yes normal facial exam, No abrasion and No laceration Mouth: Normal oral and palatal mucosa present, no drooling and no muffled voice Eyes General: appearance normal, both eyes and all related structures Periorbital: periorbital findings normal Eyelids: Yes eyelids normal Conjunctivae: conjunctivae normal Pupils: Equal, round and reactive pupils present EOM: EOMs intact bilaterally Neck Neck: Yes normal visual inspection and Yes full ROM Resp Effort & Inspection: normal respiratory effort and able to speak in complete sentences Neuro General: patient oriented x3, moves all extremities and CN's II-XI intact bilaterally Cranial nerves: Yes Equal, round and reactive pupils present Cognition (Neuro): normal cognition Extrem General: Yes normal to inspection, Yes full ROM and Yes capillary refill normal Psych Appearance: grossly normal Mental Status: mental status grossly normal Affect: normal affect Attitude: cooperative Thought process: Normal thought process present Thought content: Normal thought content present Insight: Good insight present (Psych) Course Course Course Narrative: This is a Rapid Medical Examination (RME) performed by Regi Lr PA-C in triage. Full HPI, ROS, assessment and treatment plan per primary provider in the Main ED. Hx: 54 yo F here for atraumatic right low back pain rad to buttock and thigh x2 days. pain exacerbated w/ deep breathing/ coughing. no injury. no hx spinal surgery. no urinary sx. no back pain red flags. Plan: labs, UA, XR Medical Decision Making Medical Decision Making MDM Narrative: Patient is a 54 year old assigned female at with a history of fibromyalgia, gout, and GERD presenting to the emergency department today with right sided back pain. Patient's physical exam was as noted in the physical exam portion of this note. Patient's blood work was unremarkable. Patient's urine showed moderate leuks and 6-10 wbc however, no nitrite and no UTI symptoms - will await culture before initiating treatment. Patient's lumbar x-ray, ordered by the provider in triage, showed no acute process. Patient's clinical presentation is most consistent with musculoskeletal back pain. I explained my physical exam findings as well as all test results to the patient. I answered all questions asked by the patient. I stressed the importance of the patient taking her medication as directed (either prescribed or as the over the counter packaging recommends). I stressed the importance of the patient following up with her primary care provider. I stressed the importance of the patient returning to the emergency department immediately if her symptoms were to worsen or if sh were to develop any dizziness, shortness of breath, difficulty breathing, chest pain, blurry vision, loss of vision, nausea, vomiting, abdominal pain, fever, chills, back pain, or any other complaints. Patient verbalized agreement and understanding with this treatment plan and discharge. Differential Diagnosis Differential Diagnoses: The differential diagnosis associated with the presentation includes MSK pain Low back pain Admission/Observation Consideration of admission/observation: Escalation of care including admission/observation considered Patient would have been admitted to the hospital had her work up had any findings where hospital admission was appropriate and her clinical presentation warranted hospital admission. Lab Data [facility] Lab Attestation statement: I reviewed the patient's lab results. My interpretation of these results are in the [facility] Rationale portion of this note. 11/30/24 15:42 11/30/24 15:42 Labs: Lab Results 11/30/24 11/30/24 Range/Units 15:42 15:48 WBC 5.3 (4.8-10.8) X10*3/uL RBC 4.89 (4.20-5.50) X10*6/uL Hgb 14.1 (12.0-16.0) g/dl Hct 42.4 (37.0-47.0) % MCV 86.7 (80.0-98.0) fL MCH 28.8 (27.0-33.0) pg MCHC 33.3 (31.0-35.0) g/dl RDW 12.7 (11.0-16.0) % Plt Count 179 (160-400) X10*3/uL MPV 10.3 (9.4-12.3) fL Immature Gran % (Auto) 0.2 (0.0-0.4) % Neut % (Auto) 53.9 (45-73) % Lymph % (Auto) 32.0 (20-40) % Clare % (Auto) 10.7 (2-11) % Eos % (Auto) 2.6 (0-4) % Baso % (Auto) 0.6 (0-2) % Lymph # (Auto) 1.7 (1.2-4.9) X10*3/uL Clare # (Auto) 0.6 (0.1-1.2) X10*3/uL Eos # (Auto) 0.1 (0.0-0.4) X10*3/uL Baso # (Auto) 0.0 (0.0-0.2) X10*3/uL Abs Immat Gran (auto) 0.01 (0.00-0.03) X10*3/uL Absolute Neuts (auto) 2.9 (2.0-8.3) x10*3/uL Absolute Nucleated RBC 0.000 (0.0-0.012) X10*3/uL Nucleated RBC % (auto) 0.0 (0.0-0.2) /100WBC Sodium 140 (135-145) mmol/L Potassium 4.0 D (3.3-5.1) mmol/L Chloride 104 (96-108) mmol/L Carbon Dioxide 28 (22-29) mmol/L Anion Gap 12 (12-20) BUN 14 (9-16) mg/dL Creatinine 0.66 (0.5-1.4) mg/dL Estim Creat Clear Calc 90.5 Estimated GFR > 60 Random Glucose 96 (60-115) mg/dL Calcium 9.6 (8.4-10.2) mg/dL Magnesium 1.9 (1.6-2.6) mg/dL Total Bilirubin 0.4 (0.0-1.0) mg/dL AST 30 (5-31) U/L ALT 24 (0-31) U/L Alkaline Phosphatase 79 (39-117) U/L Total Protein 7.6 (6.5-8.0) g/dL Albumin 4.8 (3.5-5.0) g/dL Urine Color Yellow Urine Appearance Clear Urine pH 5.5 (5.0-9.0) Ur Specific [place] 1.010 (1.005-1.025) Urine Protein Negative (Neg-Trace) mg/dL Urine Glucose (UA) Negative (Negative) mg/dL Urine Ketones Negative (Negative) mg/dL Urine Blood Negative (Negative) Urine Nitrite Negative (Negative) Ur Leukocyte Esterase Moderate (2+) H (Negative) Urine RBC 0-2 (0-2) /HPF Urine WBC 6-10 H (0-5) /HPF Ur Squamous Epith Cells 0-2 (0-2) /HPF Urine Bacteria None Seen (None Seen) Hyaline Casts 0-2 (0-2) /LPF Independent Interpretation I performed an independent interpretation of an: Plain X-Ray Interpretation: My interpretation is in agreement with the radiologist's impression of this imaging studies. L Reason for Exam: right low back pain CLINICAL HISTORY: right low back pain 3 views lumbar spine Comparison: CR/SR - XR LUMBAR SPINE 2-3 VIEWS - 01/30/24 12:47 EST CR/SR - XR LUMBAR SPINE 2-3 VIEWS - 12/01/23 21:53 EDT Findings: Normal alignment. No acute fractures or dislocation. Multilevel disc space narrowing and endplate osteophyte formation, as well as facet hypertrophy. IMPRESSION: No acute findings. This document has been electronically signed by: Maria Elena Rojas MD on 11/30/2024 16:46:43 Dictated By: Maria Elena Rojas MD Signed By: Electronically signed by Maria Elena Rojas MD 11/30/24 [id number] Radiology Impression Discussion of test interpretation with radiology: I have reviewed the radiologist's reading. Prescription Management I considered prescription management with: Pain Medication (patient prescribed pain medication) Discharge Plan Discharge Clinical Impression: Musculoskeletal pain Patient Disposition: Home, Self-Care Instructions: Musculoskeletal Pain (ED) Additional Instructions: IF you are prescribed home medications and/or you are taking over the counter medications at home- it is very important you continue to do so as prescribed / directed unless told otherwise. SI le recetan medicamentos y/o est? tomando medicamentos de venta tim, es muy importante que contin?e haci?ndolo seg?n lo recetado/indicado a menos que le indiquen lo contrario. Follow up with your primary care provider. Return to the emergency department immediately if your symptoms worsen or if you develop any dizziness, shortness of breath, difficulty breathing, chest pain, blurry vision, loss of vision, nausea, vomiting, abdominal pain, fever, chills, back pain, or any other complaints. Gina?seguimiento?con alexander m?dico de atenci?n primaria. Acuda inmediatamente al servicio de urgencias si zully s?ntomas empeoran o si presenta falta de aliento, dificultad para respirar, dolor tor?cico, mareos, aturdimiento, dolor de espalda, dolor abdominal, fiebre, escalofr?os o cualquier otro s?ntoma. Please see the information below about our Patient Portal. If you are not yet enrolled in the [facility] Patient Portal, you will receive an enrollment email invitation following your visit to any [facility] setting. You may also self-enroll in the Patient Portal by visiting our website: [email or web address] The following information is required to access the Patient Portal: - Your [facility] Medical Record Number - Your personal home email address (must match what is in your electronic medical record, Registration staff can assist with this) - Name - Date of Capabilities of the Patient Portal: - Message some providers - View upcoming appointments - Access your health summary, medical history, and visit history - View current conditions and allergies - View procedure and lab results - View your medications, including guidelines, side effects, and precautions - Complete pre-appointment questionnaires requested by your provider - Ready summary reports of your office visits and procedures To access the Patient Portal Mobile Meghan, follow these directions: - Search Solfo in the Meghan Store or [employer] Store - Download the Meghan - Search for [facility] - Enter your login/password Portal del paciente Si usted no esta inscrito en el portal de pacientes de [facility], recibira xavier invitacion de inscripcion despues de alexander visita al [facility] o al [facility] via correo electronico. Tambien puede inscribirse voluntariamente en el portal de pacientes visitando nuestra pagina web: [email or web address] La siguiente informacion sera requerida para acceder al portal: - Alexander awais de historia medica de [facility] - Alexander direccion de correo electronico personal - Nombre - Fecha de nacimiento Capacidades: Las siguientes capacidades estan disponibles en el portal de pacientes: - Enviar mensajes a algunos doctores - Verificar proximas citas - Acceso a alexander historial de ajay, registro medico e historial de visitas - Giuliano las condiciones actuales y alergias giuliano procedimientos y resultados del laboratorio - Giuliano zully medicamentos, incluyendo las pautas - Efectos secundarios y precauciones - Completar o llenar formularios / cuestionarios de - Citas solicitadas por alexander doctor - Leer los resumenes de reportes medicos de zully visitas y procedimientos Maxine acceder a la aplicacion movil: - Busque [employer] en la Meghan Store o [employer] XGIMI Store - Descargue la aplicacion - Meena [facility] - Ingrese alexander nombre de usuario / Contrasena Prescriptions: New cyclobenzaprine 5 mg tablet 5 mg PO TID PRN (Reason: muscle spasm) 7 Days Qty: 21 0RF prednisone 20 mg tablet 40 mg PO DAILY 5 Days Qty: 10 0RF No Action lidocaine 4 % adhesive patch,medicated 1 patch topical DAILY PRN (Reason: pain) Qty: 10 0RF Rx Instructions: may leave on for up to 12 hrs lidocaine [Lidoderm] 5 % adhesive patch,medicated 1 patch topical DAILY MDD remove after 12 hours PRN (Reason: pain) Qty: 30 0RF Rx Instructions: leave on most painful area for up to 12 hrs naproxen 500 mg tablet 500 mg PO BID PRN (Reason: pain) 10 Days Qty: 20 0RF cyclobenzaprine 5 mg tablet 5 mg PO Q8H PRN (Reason: pain (scale score 7-10)) 5 Days Qty: 14 0RF acetaminophen [Tylophen] 500 mg capsule 500 mg PO Q6H PRN (Reason: fever or pain) Qty: 14 0RF oxycodone-acetaminophen [Percocet] 5-325 mg tablet 1 tab PO Q4-6H PRN (Reason: pain) Qty: 30 0RF Rx Instructions: Partial Fill upon patient request. doxycycline hyclate 100 mg capsule 100 mg PO BID 10 Days Qty: 20 0RF benzonatate 100 mg capsule 100 mg PO BID PRN (Reason: cough) Qty: 20 0RF prednisone 20 mg tablet 40 mg PO DAILY 5 Days Qty: 10 0RF albuterol sulfate 90 mcg/actuation aerosol powdr breath activated 2 inh inhalation Q4-6H PRN (Reason: shortness of breath or wheezing) Qty: 1 0RF ibuprofen 600 mg tablet 600 mg PO Q6H PRN (Reason: fever or pain) Qty: 30 0RF dexamethasone 4 mg tablet 4 mg PO BID 5 Days Qty: 10 0RF methocarbamol 750 mg tablet 750 mg PO TID PRN (Reason: muscle spasm) Qty: 20 0RF lidocaine 5 % adhesive patch,medicated 1 patch topical DAILY Qty: 15 0RF Rx Instructions: leave on most painful area for up to 12 hrs cyclobenzaprine 10 mg tablet 10 mg PO TID PRN (Reason: muscle spasm) Qty: 10 0RF Referrals: Name,MD Aftab [Primary Care Provider, Internal Medicine] Interventions: ED Discharge Assessment Last Done: 11/30/24 17:07 Discharge Date/Time: 11/30/24 17:08 Print Language: Telugu
[2024-11-30 15:47] LABS: MANUAL DIFF FLAG NO
[2024-11-30 15:48] LABS: Hematocrit 42.4 % (37.0-47.0); Hemoglobin 14.1 g/dl (12.0-16.0); Imm Gran Abs Auto 0.01 X10*3/uL (0.00-0.03); Imm Gran Pct Auto 0.2 % (0.0-0.4); Lymphocytes Absolute Auto 1.7 X10*3/uL (1.2-4.9); Mean Corpuscular HGB Conc 33.3 g/dl (31.0-35.0); Mean Corpuscular Hemoglobin 28.8 pg (27.0-33.0); Mean Corpuscular Volume 86.7 fL (80.0-98.0); NRBC Abs Auto 0.000 X10*3/uL (0.0-0.012); NRBC Pct Auto 0.0 /100WBC (0.0-0.2); Platelet Count 179 X10*3/uL (160-400); Red Blood Count 4.89 X10*6/uL (4.20-5.50); White Blood Count 5.3 X10*3/uL (4.8-10.8)
--- OUTSIDE RECORDS SUMMARY | 2024-11-30 15:49 | XMS_ITS | Encounter Summary ---
Author Organization [employer] Address [address] [place] [address] [address] [place] [address] Care Team Providers Care Stna Name Role Phone Name, Aftab WEST Primary Care Provider [phone] Encounter Details Date Type Department Care Team ([facility] st Contact Info) Description 07/11/2022 Abstract [facility] MEDICINE [address] [place], [place] [phone] Name, MD Aftab [address] [place], [place] [phone] Social History Tobacco Use Types Packs/Day Years [...] on filedocumented in this encounter Care Teams Stna Relationship Specialty Start Date End Date Name, MD Aftab [address] [place] [address] PCP - General Family Medicine 04/29/15 documented as of this encounter
--- OUTSIDE RECORDS SUMMARY | 2024-11-30 15:49 | XMS_ITS | Clinical Summary ---
Author Organization [employer] Address [address] [place] [address] [address] [place] [address] Care Team Providers Care Customer Acquisition Specialist Name Role Phone Name, Aftab WEST Primary Care Provider [phone] Allergies No known active allergies Medications B [...] Thoracic back pain 05/25/2023 Anemia 05/25/2018 08/13/2024 Immunizations Immunization Administration Dates Next Due Hep [...] disease Dental calculus HM MAMMOGRAPHY Routine 05/23/2023 PAP/HPV Routine 05/26/2022 12:00 AM EDT INTRAORAL [...] 08/13/2024 10:0 4 AM EDT us Aftab Acharya MD POINT OF CARE TEST ENTER/EDIT OR DERABLES Final Result * Mammography (05/23/2023) Mammogram BIRADS 1 Normal, Abnormal, BIRADS 1 , BIRADS 2 Anatomical Region Laterality Modality Other us Aftab Acharya MD HEALTH MAINTENANCE Final Result * Pap Smear (05/26/2022 12:00 AM EDT) us Valeriano Tovar MD HEALTH MAINTENANCE Final Result * Colonoscopy (01/13/2021 10:17 AM EST) Colonoscopy Normal Normal Narrative Verito Ruiz - 01/13/2021 10:17 AM EST Recommended 5 year follow up Historical Provider MD HEALTH MAINTENANCE Final Result from Last 3 Months or Most Recently Relevant to Health Maintenance Insurance [facility] C3 DENTAL-[facility] MEDICAID STAND ADULT Care Teams Customer Acquisition Specialist Relationship Specialty Start Date End Date Name, MD Aftab [address] [place] [address] PCP - General Family Medicine 04/29/15
--- OUTSIDE RECORDS SUMMARY | 2024-11-30 15:49 | XMS_ITS | Encounter Summary ---
Author Organization [employer] Address [address] [place] [address] [address] [place] [address] Care Team Providers Care Embedded Firmware Engineer Name Role Phone Name, Aftab WEST Primary Care Provider [phone] Encounter Details Date Type Department Care Team (Late st Contact Info) Description 04/26/2022 Abstract [facility] ADULT DENTAL [address] [place], [place] [phone] Angel Tarango DDS [address] [place], [place] [phone] Social History Tobacco Use Types Packs/Day Years [...] on filedocumented in this encounter Care Teams Embedded Firmware Engineer Relationship Specialty Start Date End Date Name, MD Aftab [address] [place], [place] [phone] PCP - General Family Medicine 04/29/15 documented as of this encounter
--- OUTSIDE RECORDS SUMMARY | 2024-11-30 15:49 | XMS_ITS | Encounter Summary ---
Author Organization [employer] Address [address] [place] [address] [address] [place] [address] Care Team Providers Care Tuck Pointer Helper Name Role Phone Name, Aftab WEST Primary Care Provider [phone] Encounter Details Date Type Department Care Team (Late st Contact Info) Description 04/26/2022 Abstract [facility] ADULT DENTAL [address] [place], [place] [phone] Angel Tarango DDS [address] [place], [place] [phone] Social History Tobacco Use Types Packs/Day Years [...] on filedocumented in this encounter Care Teams Tuck Pointer Helper Relationship Specialty Start Date End Date Name, MD Aftab [address] [place], [place] [phone] PCP - General Family Medicine 04/29/15 documented as of this encounter
[2024-11-30 15:56] LABS: Appearance Urine Clear; Glucose Urine UA Negative (Negative); PH 5.5 (5.0-9.0); Specific Gravity - Urine 1.010 (1.005-1.025); UMIC TRIGGER UACC YES
[2024-11-30 16:00] LABS: UACC Culture Trigger YES
[2024-11-30 16:19] LABS: Alanine Aminotransferase 24 U/L (0-31); Albumin Level 4.8 g/dL (3.5-5.0); Anion Gap 12 (12-20); Aspartate Amino Transferase 30 U/L (5-31); Blood Urea Nitrogen 14 mg/dL (9-16); Calcium 9.6 mg/dL (8.4-10.2); Carbon Dioxide 28 mmol/L (22-29); Chloride 104 mmol/L (96-108); Creatinine Clr Calc Pharmacy 90.5; Estimated Glomerular Filt Rate > 60; Magnesium 1.9 mg/dL (1.6-2.6); Potassium 4.0 mmol/L (3.3-5.1); Sodium 140 mmol/L (135-145); Total Protein 7.6 g/dL (6.5-8.0)
[2024-11-30 16:35] LABS: Alkaline Phosphatase 79 U/L (39-117)
[2024-11-30 17:05] VITALS: BP 121/66; PULSE 76; RESP 18; TEMP 36.6; O2SAT 98
[2024-11-30 17:07] VITALS: BP 121/66; PULSE 76; RESP 18; TEMP 36.6; O2SAT 98
== END 2024-11-30 17:08 | disposition home or self-care (01) ==
PROVIDERS: Physician Assistant Medical; Emergency Provider Emergency Medicine; PCP Internal Medicine Geriatric Medicine
DX: M79.10 Myalgia, unspecified site (principal); M79.604 Pain in right leg; Z79.899 Other long term (current) drug therapy
CPT/HCPCS: 36415; 72100; 80053; 81001; 83735; 85025; 87086; 87147; 99283; 99284

== ENCOUNTER → 2024-11-30 15:24 | Outpatient (BNV) | payer MEDICAID, SELFPAY | PROVIDERS: Emergency Provider Emergency Medicine; PCP Internal Medicine Geriatric Medicine; Visit Provider Radiology Diagnostic Radiology | DX: M54.50 Low back pain, unspecified (principal) | CPT/HCPCS: 72100 ==